=== PATIENT | female | born 1950 | race African-American/Black ===

== ENCOUNTER → 2016-08-21 | Outpatient (CLI) | payer OTHER ==
--- NOTE | 2016-08-21 10:42 | KCIC ---
Exam: Abdomen ultrasound Indication:Reason For Study Reason: WEIGHT LOSS, LUQ PAIN / Spl. Instructions: / History: Technique: Multiple realtime grayscale sonographic images were obtained over the abdomen. Static images were submitted for interpretation. Findings: Visualized portions of the pancreas are unremarkable. The IVC is patent. The aorta is normal in caliber. The liver is normal in size measuring 15 cm. There is a normal hepatic echotexture. There is a cyst in the posterior right lobe that measures 1.8 centimeters. There is also a cyst with some internal septation or calcification also in the right lobe that measures up to 2.7 centimeters size. This is unchanged compared to the previous exam from 06/07/2014. The gallbladder is nondistended. There is no evidence for cholelithiasis. There is no wall thickening, or pericholecystic fluid. The common bile duct is dilated measuring 9 millimeters. The Right kidney is normal in size measuring 10.1 x 4.8 x 3.8 cm. There is no evidence for mass, nephrolithiasis, or hydronephrosis. The Left kidney is normal in size measuring 10.3 x 2.9 x 4.9 cm. There is no evidence for mass, nephrolithiasis, or hydronephrosis. The spleen is normal in size measuring 8.2 cm. No ascites is identified. Impression: - There is dilatation of the common bile duct measuring up to 9 millimeters. No cholelithiasis or evidence for acute cholecystitis. Electronically signed by: Mateo Mosley (Aug 21, 2016 10:41:01)
== END | disposition home or self-care (01) ==
LOC: KCIC US 08:41
PROVIDERS: ATTEND Internal Medicine Gastroenterology
DX: R10.12 Left upper quadrant pain (principal); R63.4 Abnormal weight loss
CPT/HCPCS: 76700

== ENCOUNTER → 2016-09-10 | Outpatient (CLI) | payer OTHER ==
[~2016-09-10] MED LIST: ATOR10TA60 PO; DICL100G7 TP; DICY10CA3 PO; FLUO15CR TP; IOHEXOL 240 MG/ML 50ML VIAL. PO ONE; IOHEXOL 300 MG/ML 100ML VIAL. IV ONE; KETO15CR TP; MELO-156 PO; MOME13HF2 IH; POTA10TA5 PO; TRIA80OI TP; VENTOLIN HFA18 GM INH
--- NOTE | 2016-09-10 13:21 | KCIC ---
PQRS STATEMENT One or more of the following individualized dose reduction techniques were utilized for this study:1.Automated exposure control. 2.Adjustment of the mA and/orkVaccording to patient size. 3.Use of iterative reconstruction technique CT abdomen Indication: Reason For Study Reason: DILATED BILE DUCT SEEN ON US. ABDOMINAL PAIN / Spl. Instructions: 89cc Omni 300 / History: Mid abdominal pain a few months, wt loss Technique: Multiple contiguous axial images were obtained through abdomen after intravenous administration of iodinated contrast and oral barium contrast. Coronal and sagittal reformations were created. Findings: Lung bases are clear. Heart size is normal. The liver is normal in size and demonstrates hepatic cysts within the right lobe, the largest of which measures 2.6 centimeters. No enhancing hepatic lesions are identified. The gallbladder is nondistended. The pancreas, spleen, and adrenal glands are unremarkable. Kidneys are normal in size and appearance. No enhancing mass or hydronephrosis. No ascites or adenopathy. No destructive osseous lesions are identified. Impression: No ascites or inflammatory mass. There are several hepatic cysts, the largest of which measures 2.6 centimeters. Electronically signed by: Mateo Mosley (Sep 10, 2016 13:20:23)
== END | disposition home or self-care (01) ==
LOC: KCIC CT 08:45
PROVIDERS: ATTEND Internal Medicine Gastroenterology
DX: R10.9 Unspecified abdominal pain (principal); K76.89 Other specified diseases of liver
CPT/HCPCS: 74160; Q9966; Q9967; 82565

== ENCOUNTER → 2016-10-15 | Outpatient (CLI) | payer OTHER ==
[~2016-10-15] MED LIST changes: -IOHEXOL 240 MG/ML 50ML VIAL. PO ONE; -IOHEXOL 300 MG/ML 100ML VIAL. IV ONE
--- NOTE | 2016-10-15 16:30 | KCIC ---
PROCEDURE MRI abdomenwithout contrast and MRCP. HISTORY Common bile duct stone. Abnormal ultrasound study. TECHNIQUE T1 and T2 weighted MRI sequences of the abdomen was performed in the axial and coronal planes. In phase and out of phase MRI sequences were performed. Using a single shot heavily T2-weighted fast spin-echo and MIP algorithm, 3-D reconstructed MRCP was generated. COMPARISON Ultrasound study dated August 21, [address] study dated September 10, 2016. FINDINGS MRI ABDOMEN: Cysts of the liver are seen. The spleen is not enlarged. The pancreas is homogeneous in appearance. The gallbladder is normal. No adrenal mass is evident. A small sub centimeter nodule of the upper pole right kidney is seen which is very bright on T2 weighted images most consistent with a cyst. No hydronephrosis is seen. No focal aneurysmal dilatation of the abdominal aorta is seen. No enlarged abdominal lymphadenopathy is seen. No ascites is seen. MRCP: No abnormal dilatation of the intrahepatic or extrahepatic biliary tree is seen. No filling defects are seen within the extrahepatic biliary tree. No stricture is seen. No abnormal dilatation of the pancreatic duct is seen. IMPRESSION 1. Hepatic cysts and tiny right renal cyst. 2. Unremarkable MRCP. Electronically signed by: Олег Flynn MD (October 15, 2016 16:28:29)
== END | disposition home or self-care (01) ==
LOC: KCIC MRI 08:40
PROVIDERS: ATTEND Physician Assistant
DX: K76.89 Other specified diseases of liver (principal); N28.1 Cyst of kidney, acquired
CPT/HCPCS: 74181

== ENCOUNTER → 2016-11-19 | Outpatient (CLI) | payer OTHER ==
[~2016-11-19] MED LIST changes: +DICL100G18 TP; -DICL100G7 TP; -KETO15CR TP; +KETO15CR2 TP; -MELO-156 PO; +MELO7.5T29 PO
--- NOTE | 2016-11-19 15:32 | RAD ---
DATE: 11/19/2016 EXAM: DIGITAL SCREEN BILAT W/CAD HISTORY: Screening study. COMPARISON: 11/12/2015 This study was interpreted with the benefit of Computerized Aided Detection (CAD). FINDINGS: Digital MLO and CC mammograms of both breasts were obtained. Comparison study is dated 11/12/2015. The breast parenchyma is composed of scattered fibroglandular densities which can obscure a lesion on mammography (breast density code B).. Benign-appearing calcifications are seen within both breasts. No spiculated mass is seen. No malignant appearing calcification or area of architectural distortion is noted. IMPRESSION: BI-RADS Category 1, negative. There is no mammographic evidence of malignancy. Routine yearly screening mammography is recommended for follow-up. BI-RADS CATEGORY: 1 NEGATIVE RECOMMENDED FOLLOW-UP: 12M 12 MONTH FOLLOW-UP PQRS compliance statement: Patient information was entered into a reminder system with a target due date 11/19/2017 for the next mammogram. Mammography is a sensitive method for finding small breast cancers, but it does not detect them all and is not a substitute for careful clinical examination. A negative mammogram does not negate a clinically suspicious finding and should not result in delay in biopsying a clinically suspicious abnormality. "Our facility is accredited by the [employer] Mammography Program."
== END | disposition home or self-care (01) ==
LOC: MAMMO 13:20
PROVIDERS: ATTEND Family Medicine
DX: Z12.31 Encounter for screening mammogram for malignant neoplasm of breast (principal)
CPT/HCPCS: G0202; 77067

== ENCOUNTER 2016-12-14 11:48 | Inpatient (IN) | payer OTHER ==
[~2016-12-14] VITALS: Ht 160 cm; Wt 59.9 kg
--- NOTE | 2016-12-14 12:12 | EKG ---
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
[2016-12-14] MEDS ORDERED: IV NORMAL SALINE 1000ML BAG 1,000 ML IV ONE (12:15)
[2016-12-14 12:20] LABS: BASO % 1 % (0-3); EOS % 1 % (0-3); HEMATOCRIT 46.5 % (36.0-47.0); HEMOGLOBIN 15.6 g/dL (12.0-15.5); LYMPH # 2.7 x10^3/uL (1.0-4.8); LYMPH % 41 % (24-48); MEAN CORPUSCULAR HEMOGLOBIN 31 pg (25-35); MEAN CORPUSCULAR HGB CONC 34 g/dL (31-37); MEAN CORPUSCULAR VOLUME 92 fL (79-100); MONO % 11 % (0-9); NEUT % 46 % (31-73); PLATELET COUNT 343 x10^3/uL (140-400); RED BLOOD COUNT 5.04 x10^6/uL (3.50-5.40); RED CELL DISTRIBUTION WIDTH 15.4 % (11.5-14.5); WHITE BLOOD COUNT 6.5 x10^3/uL (4.0-11.0)
[2016-12-14 12:30] LABS: PROTHROMBIN TIME PATIENT 12.6 SEC (11.7-14.0)
[2016-12-14 12:35] LABS: GFR 66.7; POTASSIUM 3.1 mmol/L (3.5-5.1)
--- NOTE | 2016-12-14 12:40 | PHYS DOC ---
Past Medical History Past Medical History: Hypertension Alcohol Use: None Drug Use: None Adult General Chief Complaint Chief Complaint: ALTERED MENTAL STATUS HPI HPI Patient is a 66 year old female presenting to the emergency department for evaluation of altered mental status and increased confusion. Patient was at sikhism and one half her friends was next to her and appeared the patient was emotional and then later on friend was asking patient's questions and she could not recall her 's phone number and seemed more disoriented. Per and daughter she is highly functioning usually alert and oriented the patient is now alert and oriented 2 cannot tell me the month or the year and does not know her doctor's name or any of her medications. She says that she has a history of hypertension and high cholesterol but no strokes or heart attacks in the past. They say that she had an episode like this in the past where she had an emotional event and then had lapses in memory that resolved on its own after an inpatient admission. Review of Systems Review of Systems Constitutional: Denies fever or chills [] Eyes: Denies change in visual acuity, redness, or eye pain [] HENT: Denies nasal congestion or sore throat [] Respiratory: Denies cough or shortness of breath [] Cardiovascular: No additional information not addressed in HPI [] GI: Denies abdominal pain, nausea, vomiting, bloody stools or diarrhea [] : Denies dysuria or hematuria [] Musculoskeletal: Denies back pain or joint pain [] Integument: Denies rash or skin lesions [] Neurologic: Denies headache, focal weakness or sensory changes [] Current Medications Current Medications Current Medications Medications (Trade) Dose Ordered Sig/Claudy Start Time Stop Time Status Last Admin Dose Admin Sodium Chloride 1,000 ml @ 1,000 mls/hr 1X ONCE 12/14/16 12:15 12/14/16 13:14 DC 12/14/16 12:15 1,000 MLS/HR Allergies Allergies Allergies Coded Allergies Type Severity Reaction Last Updated Verified morphine Allergy Unknown severe vomiting 05/30/14 Yes Physical Exam Physical Exam Constitutional: Well developed, well nourished, no acute distress, non-toxic appearance. [] HENT: Normocephalic, atraumatic, bilateral external ears normal, oropharynx moist, no oral exudates, nose normal. [] Eyes: PERRLA, EOMI, conjunctiva normal, no discharge. [] Neck: Normal range of motion, no tenderness, supple, no stridor. [] Cardiovascular:Heart rate regular rhythm, no murmur [] Lungs & Thorax: Bilateral breath sounds clear to auscultation [] Abdomen: Bowel sounds normal, soft, no tenderness, no masses, no pulsatile masses. [] Skin: Warm, dry, no erythema, no rash. [] Back: No tenderness, no CVA tenderness. [] Extremities: No tenderness, no cyanosis, no clubbing, ROM intact, no edema. [] Neurologic: Alert and oriented X 2, normal motor function, normal sensory function, no focal deficits noted. [] Current Patient Data Vital Signs Vital Signs Date Time Temp Pulse Resp B/P (MAP) Pulse Ox O2 Delivery O2 Flow Rate FiO2 12/14/16 11:48 98.1 92 16 165/75 (105) 99 Room Air 98.1 Lab Values Laboratory Tests Test 12/14/16 11:55 12/14/16 12:35 White Blood Count 6.5 x10^3/uL (4.0-11.0) Red Blood Count 5.04 x10^6/uL (3.50-5.40) Hemoglobin 15.6 g/dL (12.0-15.5) H Hematocrit 46.5 % (36.0-47.0) Mean Corpuscular Volume 92 fL (79-100) Mean Corpuscular Hemoglobin 31 pg (25-35) Mean Corpuscular Hemoglobin Concent 34 g/dL (31-37) Red Cell Distribution Width 15.4 % (11.5-14.5) H Platelet Count 343 x10^3/uL (140-400) Neutrophils (%) (Auto) 46 % (31-73) Lymphocytes (%) (Auto) 41 % (24-48) Monocytes (%) (Auto) 11 % (0-9) H Eosinophils (%) (Auto) 1 % (0-3) Basophils (%) (Auto) 1 % (0-3) Neutrophils # (Auto) 3.0 x10^3uL (1.8-7.7) Lymphocytes # (Auto) 2.7 x10^3/uL (1.0-4.8) Monocytes # (Auto) 0.7 x10^3/uL (0.0-1.1) Eosinophils # (Auto) 0.1 x10^3/uL (0.0-0.7) Basophils # (Auto) 0.0 x10^3/uL (0.0-0.2) Sodium Level 138 mmol/L (136-145) Potassium Level 3.1 mmol/L (3.5-5.1) L Chloride Level 100 mmol/L (98-107) Carbon Dioxide Level 26 mmol/L (21-32) Anion Gap 12 (6-14) Blood Urea Nitrogen 15 mg/dL (7-20) Creatinine 1.0 mg/dL (0.6-1.0) Estimated GFR (Cockcroft-Gault) 66.7 BUN/Creatinine Ratio 15 (6-20) Glucose Level 155 mg/dL (70-99) H Calcium Level 11.0 mg/dL (8.5-10.1) H Magnesium Level 2.1 mg/dL (1.8-2.4) Total Bilirubin 0.3 mg/dL (0.2-1.0) Aspartate Amino Transferase (AST) 32 U/L (15-37) Alanine Aminotransferase (ALT) 46 U/L (14-59) Alkaline Phosphatase 175 U/L (46-116) H Troponin I Quantitative 0.017 ng/mL (0.000-0.055) IA-Ziq-V-Type Natriuretic Peptide 32 pg/mL (0-124) Total Protein 8.9 g/dL (6.4-8.2) H Albumin 4.5 g/dL (3.4-5.0) Albumin/Globulin Ratio 1.0 (1.0-1.7) Thyroid Stimulating Hormone (TSH) 1.034 uIU/mL (0.358-3.74) Salicylates Level < 2.8 mg/dL (2.8-20.0) L Salicylate Last Dose Date Salicylate Last Dose Time Acetaminophen Level < 2 mcg/ml (10-30) L Acetaminophen Last Dose Date Acetaminophen Last Dose Time Ethyl Alcohol Level < 10 mg/dL (0-10) Urine Collection Type Unknown Urine Color Yellow Urine Clarity Clear Urine pH 7.5 Urine Specific [place] <=1.005 Urine Protein Negative mg/dL (NEG-TRACE) Urine Glucose (UA) Negative mg/dL (NEG) Urine Ketones (Stick) Negative mg/dL (NEG) Urine Blood Negative (NEG) Urine Nitrite Negative (NEG) Urine Bilirubin Negative (NEG) Urine Urobilinogen Dipstick 0.2 mg/dL (0.2 mg/dL) Urine Leukocyte Esterase Negative (NEG) Urine RBC 0 /HPF (0-2) Urine WBC 0 /HPF (0-4) Urine Squamous Epithelial Cells Few /LPF Urine Bacteria 0 /HPF (0-FEW) Urine Opiates Screen Neg (NEG) Urine Methadone Screen Neg (NEG) Urine Barbiturates Neg (NEG) Urine Phencyclidine Screen Neg (NEG) Urine Amphetamine/Methamphetamine Neg (NEG) Urine Benzodiazepines Screen Neg (NEG) Urine Cocaine Screen Neg (NEG) Urine Cannabinoids Screen Neg (NEG) Urine Ethyl Alcohol Neg (NEG) Laboratory Tests 12/14/16 11:55 Laboratory Tests 12/14/16 11:55 EKG EKG Sinus rhythm at 90 beats per minutes with normal axis no obvious ST elevation or depression and normal T waves. Radiology/Procedures Radiology/Procedures CT head without contrast History: Confusion. Comparison: None. Procedure: Axial images are obtained of the head from the skull base through the vertex without IV contrast. Findings: Mild bilateral periventricular white matter hypodensities likely chronic small vessel ischemic disease. The ventricles and sulci are normal for the patient's age. No mass-effect, intracranial mass, midline shift, hemorrhage or obvious acute infarction is identified. Basilar cisterns are patent. Bone windows demonstrate no significant calvarial abnormality. The visualized paranasal sinuses appear clear. Impression: 1. No acute intracranial process. PQRS Compliance Statement: One or more of the following individualized dose reduction techniques were utilized for this examination: 1. Automated exposure control 2. Adjustment of the mA and/or kV according to patient size 3. Use of iterative reconstruction technique DICTATED and SIGNED BY: DALTON GONSALEZ MD DATE: 12/14/16 6022 Course & Med Decision Making Course & Med Decision Making Patient with likely conversion disorder. I spoke to the neurologist on-call Dr. Vera. Based off history and physical exam will not do TPA at this time as her NIH stroke scale is 0. Patient will be admitted for the hospital due to her confusion. Patient admitted in stable condition. Dragon Disclaimer Dragon Disclaimer This electronic medical record was generated, in whole or in part, using a voice recognition dictation system. Departure Departure Impression: Primary Impression: Encephalopathy acute Additional Impression: Hypokalemia Disposition: ADMITTED INPATIENT Admitting Physician: Sunitha Rahman Condition: STABLE Referrals: CT JIMENEZ MD (PCP) Problem Qualifiers NINA CHADWICK DO Dec 14, 2016 12:40
[2016-12-14 12:42] LABS: ALBUMIN 4.5 g/dL (3.4-5.0); MAGNESIUM 2.1 mg/dL (1.8-2.4); TOTAL BILIRUBIN 0.3 mg/dL (0.2-1.0); TOTAL PROTEIN 8.9 g/dL (6.4-8.2)
[2016-12-14 12:47] LABS: ETHANOL < 10 mg/dL (0-10)
[2016-12-14 13:10] LABS: BARBITURATES NEG (NEG); BENZODIAZEPINES NEG (NEG); CANNABINOIDS NEG (NEG); COCAINE NEG (NEG); METHADONE NEG (NEG); OPIATES NEG (NEG); PHENCYCLIDINE NEG (NEG)
[2016-12-14 13:12] LABS: BACTERIA,URINE 0 /HPF (0-FEW); BILIRUBIN,URINE NEGATIVE (NEG); GLUCOSE,URINE NEGATIVE (NEG); NITRITE,URINE NEGATIVE (NEG); PH,URINE 7.5; PROTEIN,URINE NEGATIVE (NEG-TRACE); RBC,URINE 0 /HPF (0-2); SQUAMOUS EPITHELIAL CELL,UR FEW /LPF; UROBILINOGEN,URINE 0.2 mg/dL (0.2 mg/dL); WBC,URINE 0 /HPF (0-4)
[2016-12-14] MEDS ORDERED: POTASSIUM CHLORIDE 20 MEQ TABLET.ER. PO ONE ×2 (13:15→18:00)
[2016-12-14] MEDS ORDERED: ONDANSETRON PF 4 MG/2 ML VIAL. IV PRN ×2 (13:15→15:00)
[2016-12-14 14:40] VITALS: BP 123/61
[2016-12-14 14:44] VITALS: BP 123/61
[2016-12-14] MEDS ORDERED: ALBUTEROL SULFATE 2.5 MG/3 ML NEBU. NEB PRN (15:00)
[2016-12-14] MEDS ORDERED: hydrALAZINE 20 MG/ML VIAL. IVP PRN (15:00)
[2016-12-14] MEDS ORDERED: ACETAMINOPHEN 325 MG TABLET. PO PRN (15:00)
[2016-12-14] MEDS ORDERED: ATOR20TA58 PO (15:57)
[2016-12-14] MEDS ORDERED: BIOT25006 PO (15:57)
[2016-12-14] MEDS ORDERED: FOLI1TAB35 PO (15:57)
[2016-12-14] MEDS ORDERED: POTA20TA4 PO (16:00)
[2016-12-14] MEDS ORDERED: OMEP40CA5 PO (16:00)
[2016-12-14] MEDS ORDERED: TRIA1CAP3 PO (16:00)
[2016-12-14] MEDS ORDERED: CALC-77 PO (16:00)
[2016-12-14] MEDS ORDERED: AMLO5TAB2 PO (16:01)
[2016-12-14] MEDS ORDERED: IBUPROFEN 400 MG TABLET. PO PRN (17:45)
--- NOTE | 2016-12-14 17:51 | PDOC1 ---
History and Physical History of Present Illness History of Present Illness Date of exam 12/14/2016 5:30 PM Chief complaint: Brief loss memory History of present illness: A 66-year-old -[place] female patient with prior history for hypertension brought to the hospital for a sudden loss of memory for a few hours. Today patient was with her family members in mormonism however she could not able to recall her or family member's names and phone numbers for a brief period of time. She was brought to the hospital and her symptoms lasted for nearly a few hours, at the time of examination patient is completely alert and oriented 3, she was able to recall that she was singing in the choir, but family says similar things she could not able to tell as few hours ago. Her mom was nearly 2 years ago, she had a similar episode of loss of consciousness, at the time she was evaluated in [facility] however at the time her CT of the head did not show any acute findings. She denies any headache nausea vomiting or syncope or fever or chills. Her left past medical history: Hypertension Surgical history :none Family history: father had congestive heart failure, mother had colon cancer, some of her close family members have a cerebral aneurysms. Personal history never smoker no alcohol no drug abuse, Current Problem List Problem List Problems Medical Problems: (1) Encephalopathy acute Status: Acute (2) Hypokalemia Status: Acute Current Medications Current Medications Current Medications Medications (Trade) Dose Ordered Sig/Claudy Start Time Stop Time Status Last Admin Dose Admin Acetaminophen (Tylenol) 325 mg PRN Q6HRS PRN 12/14/16 15:00 Albuterol Sulfate (Ventolin Neb Soln) 2.5 mg PRN Q4HRS PRN 12/14/16 15:00 Hydralazine HCl (Apresoline) 10 mg PRN Q4HRS PRN 12/14/16 15:00 Ondansetron HCl (Zofran) 4 mg PRN Q8HRS PRN 12/14/16 15:00 Potassium Chloride (Klor-Con) 40 meq 1X ONCE 12/14/16 13:15 12/14/16 13:16 DC Sodium Chloride 1,000 ml @ 1,000 mls/hr 1X ONCE 12/14/16 12:15 12/14/16 13:14 DC 12/14/16 12:15 1,000 MLS/HR Allergies Allergies Allergies Coded Allergies Type Severity Reaction Last Updated Verified doxycycline Allergy Intermediate 12/14/16 Yes morphine Allergy Unknown severe vomiting 05/30/14 Yes ROS Review of System CONSTITUTIONAL: No fever or chills EYES: No recent changes SKIN: No rash or itching CARDIOVASCULAR: No chest pain, syncope, palpitations, or edema RESPIRATORY: No SOB or cough GASTROINTESTINAL: No nausea, vomiting or abdominal pain NEUROLOGICAL: No headaches or weakness ENDOCRINE: No cold or heat intolerance GENITOURINARY: No urgency or frequency of urination MUSCULOSKELETAL: No back pain or joint pain LYMPHATICS: No enlarged lymph nodes PSYCHIATRIC: No anxiety or depression Physical Exam Physical Exam GEN.: No apparent distress. Alert and oriented 3, appropriate and cooperative. HEENT: Head is normocephalic, atraumatic NECK: Supple. LUNGS: Clear to auscultation. HEART: RRR, S1, S2 present. Peripheral pulses intact ABDOMEN: Soft, nontender. Positive bowel sounds. EXTREMITIES: Without any cyanosis. NEUROLOGIC: Normal speech, normal tone, strength equal in upper extremities, PSYCHIATRIC: Normal affect, normal mood. SKIN: No ulcerations Vitals Vitals Vital Signs Date Time Temp Pulse Resp B/P (MAP) Pulse Ox O2 Delivery O2 Flow Rate FiO2 12/14/16 14:44 98.3 86 15 123/61 (81) 100 Room Air 98.3 Labs Labs Laboratory Tests Test 12/14/16 11:55 12/14/16 12:35 White Blood Count 6.5 x10^3/uL (4.0-11.0) Red Blood Count 5.04 x10^6/uL (3.50-5.40) Hemoglobin 15.6 g/dL (12.0-15.5) Hematocrit 46.5 % (36.0-47.0) Mean Corpuscular Volume 92 fL (79-100) Mean Corpuscular Hemoglobin 31 pg (25-35) Mean Corpuscular Hemoglobin Concent 34 g/dL (31-37) Red Cell Distribution Width 15.4 % (11.5-14.5) Platelet Count 343 x10^3/uL (140-400) Neutrophils (%) (Auto) 46 % (31-73) Lymphocytes (%) (Auto) 41 % (24-48) Monocytes (%) (Auto) 11 % (0-9) Eosinophils (%) (Auto) 1 % (0-3) Basophils (%) (Auto) 1 % (0-3) Neutrophils # (Auto) 3.0 x10^3uL (1.8-7.7) Lymphocytes # (Auto) 2.7 x10^3/uL (1.0-4.8) Monocytes # (Auto) 0.7 x10^3/uL (0.0-1.1) Eosinophils # (Auto) 0.1 x10^3/uL (0.0-0.7) Basophils # (Auto) 0.0 x10^3/uL (0.0-0.2) Prothrombin Time 12.6 SEC (11.7-14.0) Prothromb Time International Ratio 1.0 (0.8-1.1) Activated Partial Thromboplast Time 27 SEC (24-38) Sodium Level 138 mmol/L (136-145) Potassium Level 3.1 mmol/L (3.5-5.1) Chloride Level 100 mmol/L (98-107) Carbon Dioxide Level 26 mmol/L (21-32) Anion Gap 12 (6-14) Blood Urea Nitrogen 15 mg/dL (7-20) Creatinine 1.0 mg/dL (0.6-1.0) Estimated GFR (Cockcroft-Gault) 66.7 BUN/Creatinine Ratio 15 (6-20) Glucose Level 155 mg/dL (70-99) Calcium Level 11.0 mg/dL (8.5-10.1) Magnesium Level 2.1 mg/dL (1.8-2.4) Total Bilirubin 0.3 mg/dL (0.2-1.0) Aspartate Amino Transf (AST/SGOT) 32 U/L (15-37) Alanine Aminotransferase (ALT/SGPT) 46 U/L (14-59) Alkaline Phosphatase 175 U/L (46-116) Troponin I Quantitative 0.017 ng/mL (0.000-0.055) IU-Ikn-I-Type Natriuretic Peptide 32 pg/mL (0-124) Total Protein 8.9 g/dL (6.4-8.2) Albumin 4.5 g/dL (3.4-5.0) Albumin/Globulin Ratio 1.0 (1.0-1.7) Thyroid Stimulating Hormone (TSH) 1.034 uIU/mL (0.358-3.74) Salicylates Level < 2.8 mg/dL (2.8-20.0) Salicylate Last Dose Date Salicylate Last Dose Time Acetaminophen Level < 2 mcg/ml (10-30) Acetaminophen Last Dose Date Acetaminophen Last Dose Time Ethyl Alcohol Level < 10 mg/dL (0-10) Urine Collection Type Unknown Urine Color Yellow Urine Clarity Clear Urine pH 7.5 Urine Specific [place] <=1.005 Urine Protein Negative mg/dL (NEG-TRACE) Urine Glucose (UA) Negative mg/dL (NEG) Urine Ketones (Stick) Negative mg/dL (NEG) Urine Blood Negative (NEG) Urine Nitrite Negative (NEG) Urine Bilirubin Negative (NEG) Urine Urobilinogen Dipstick 0.2 mg/dL (0.2 mg/dL) Urine Leukocyte Esterase Negative (NEG) Urine RBC 0 /HPF (0-2) Urine WBC 0 /HPF (0-4) Urine Squamous Epithelial Cells Few /LPF Urine Bacteria 0 /HPF (0-FEW) Urine Opiates Screen Neg (NEG) Urine Methadone Screen Neg (NEG) Urine Barbiturates Neg (NEG) Urine Phencyclidine Screen Neg (NEG) Urine Amphetamine/Methamphetamine Neg (NEG) Urine Benzodiazepines Screen Neg (NEG) Urine Cocaine Screen Neg (NEG) Urine Cannabinoids Screen Neg (NEG) Urine Ethyl Alcohol Neg (NEG) Laboratory Tests Test 12/14/16 11:55 12/14/16 12:35 White Blood Count 6.5 x10^3/uL (4.0-11.0) Red Blood Count 5.04 x10^6/uL (3.50-5.40) Hemoglobin 15.6 g/dL (12.0-15.5) Hematocrit 46.5 % (36.0-47.0) Mean Corpuscular Volume 92 fL (79-100) Mean Corpuscular Hemoglobin 31 pg (25-35) Mean Corpuscular Hemoglobin Concent 34 g/dL (31-37) Red Cell Distribution Width 15.4 % (11.5-14.5) Platelet Count 343 x10^3/uL (140-400) Neutrophils (%) (Auto) 46 % (31-73) Lymphocytes (%) (Auto) 41 % (24-48) Monocytes (%) (Auto) 11 % (0-9) Eosinophils (%) (Auto) 1 % (0-3) Basophils (%) (Auto) 1 % (0-3) Neutrophils # (Auto) 3.0 x10^3uL (1.8-7.7) Lymphocytes # (Auto) 2.7 x10^3/uL (1.0-4.8) Monocytes # (Auto) 0.7 x10^3/uL (0.0-1.1) Eosinophils # (Auto) 0.1 x10^3/uL (0.0-0.7) Basophils # (Auto) 0.0 x10^3/uL (0.0-0.2) Prothrombin Time 12.6 SEC (11.7-14.0) Prothromb Time International Ratio 1.0 (0.8-1.1) Activated Partial Thromboplast Time 27 SEC (24-38) Sodium Level 138 mmol/L (136-145) Potassium Level 3.1 mmol/L (3.5-5.1) Chloride Level 100 mmol/L (98-107) Carbon Dioxide Level 26 mmol/L (21-32) Anion Gap 12 (6-14) Blood Urea Nitrogen 15 mg/dL (7-20) Creatinine 1.0 mg/dL (0.6-1.0) Estimated GFR (Cockcroft-Gault) 66.7 BUN/Creatinine Ratio 15 (6-20) Glucose Level 155 mg/dL (70-99) Calcium Level 11.0 mg/dL (8.5-10.1) Magnesium Level 2.1 mg/dL (1.8-2.4) Total Bilirubin 0.3 mg/dL (0.2-1.0) Aspartate Amino Transf (AST/SGOT) 32 U/L (15-37) Alanine Aminotransferase (ALT/SGPT) 46 U/L (14-59) Alkaline Phosphatase 175 U/L (46-116) Troponin I Quantitative 0.017 ng/mL (0.000-0.055) VJ-Ioz-Y-Type Natriuretic Peptide 32 pg/mL (0-124) Total Protein 8.9 g/dL (6.4-8.2) Albumin 4.5 g/dL (3.4-5.0) Albumin/Globulin Ratio 1.0 (1.0-1.7) Thyroid Stimulating Hormone (TSH) 1.034 uIU/mL (0.358-3.74) Salicylates Level < 2.8 mg/dL (2.8-20.0) Salicylate Last Dose Date Salicylate Last Dose Time Acetaminophen Level < 2 mcg/ml (10-30) Acetaminophen Last Dose Date Acetaminophen Last Dose Time Ethyl Alcohol Level < 10 mg/dL (0-10) Urine Collection Type Unknown Urine Color Yellow Urine Clarity Clear Urine pH 7.5 Urine Specific [place] <=1.005 Urine Protein Negative mg/dL (NEG-TRACE) Urine Glucose (UA) Negative mg/dL (NEG) Urine Ketones (Stick) Negative mg/dL (NEG) Urine Blood Negative (NEG) Urine Nitrite Negative (NEG) Urine Bilirubin Negative (NEG) Urine Urobilinogen Dipstick 0.2 mg/dL (0.2 mg/dL) Urine Leukocyte Esterase Negative (NEG) Urine RBC 0 /HPF (0-2) Urine WBC 0 /HPF (0-4) Urine Squamous Epithelial Cells Few /LPF Urine Bacteria 0 /HPF (0-FEW) Urine Opiates Screen Neg (NEG) Urine Methadone Screen Neg (NEG) Urine Barbiturates Neg (NEG) Urine Phencyclidine Screen Neg (NEG) Urine Amphetamine/Methamphetamine Neg (NEG) Urine Benzodiazepines Screen Neg (NEG) Urine Cocaine Screen Neg (NEG) Urine Cannabinoids Screen Neg (NEG) Urine Ethyl Alcohol Neg (NEG) VTE Prophylaxis Ordered VTE Prophylaxis Devices: No VTE Pharmacological Prophylaxi: No Assessment/Plan Assessment/Plan Assessment and plan Brief loss of memory: Unclear etiology, at the time of my examination patient appears very appropriate and able to recall some of her the events happened this morning family members at bedside. Initial imaging studies such as CT of the head is negative, I will order a CTA of the brain as patient had a history of aneurysms however she denies any symptoms such as headache nausea vomiting. Replace potassium Hypertension: Stable, continue current regimen, as needed hydralazine if systolic blood pressure more than 165 mmHg. Labs/images/old records reviewed case discussed with ER physician, SERENITY ANDERSON MD Dec 14, 2016 17:51
[2016-12-14] MEDS ORDERED: CONTRAST GIVEN MC PRN (18:00)
[2016-12-14] MEDS ORDERED: IOHEXOL 350 MG/ML 100 ML VIAL. IV ONE (18:30)
[2016-12-14 19:00] VITALS: BP 109/56
[2016-12-14] MEDS ORDERED: DICYCLOMINE HCL 10 MG CAPSULE PO SCH (21:00)
[2016-12-14] MEDS ORDERED: KETOCONAZOLE 2% TOPICAL CREAM 15GM TUBE. TP SCH (21:00)
[2016-12-14] MEDS ORDERED: FLUOCINONIDE 0.05% TOPICAL CREAM 15 GM TUBE. TP SCH (21:00)
[2016-12-14] MEDS ORDERED: DICLOFENAC SODIUM 1% TOPICAL GEL 100GM TUBE. TP SCH (21:00)
--- NOTE | 2016-12-14 21:33 | PDOC2 ---
NEUROLOGY CONSULT Date of Admission Date of Admission DATE: 12/14/16 TIME: 21:25 Reason for consultation: Transient episode of confusion History of present illness: Keya Mathew is a pleasant 66-year-old woman who had an episode of confusion today lasting for several hours. She remembers getting up and getting ready and going to gnosticist. She sings in the choir and remember singing the first few songs. This is the last of her memory until she was in the emergency room. Apparently she was acting confused to those around her. She asked the same questions repeatedly. She did not seem to retain any information. She was taken by ambulance to emergency room but does not remember. She has memories in the emergency room and has been progressively improving. She had a similar episode 2 years ago when her mother . She does not have any memory of the . Her was at bedside and was witnessed to the first spell. She asked the same questions repeatedly. The symptoms resolved after a number of hours. It seem it took her a day to really get back to her usual self. He did not witness today spell. She has a slight headache which is minor. She does not have any loss of vision or hearing. This did not affect her strength, balance or sensation. She underwent a CT scan of her head in the emergency room without contrast which did not reveal an acute process. She basically feels back to her usual self at the time of my evaluation. Past medical history: 1. Hypertension 2. Prediabetes 3. Treated hyperlipidemia Family history: Her mother with colon cancer. She had diabetes and hyperlipidemia. Her brother had a stroke. Her father with heart disease. Her sister with a ruptured brain aneurysm. Social history: She is and has 2 children. She has 4 grandchildren that live local. She is a lifelong nonsmoker. She does not drink alcohol or use recreational drugs. She is very active. She exercises once per week. If she exercises more often she has a tendency to lose weight and does not want to lose any more weight. Current Medications Current Medications Current Medications Sodium Chloride 1,000 ml @ 1,000 mls/hr 1X ONCE IV Last administered on t 12:15; Start 12/14/16 at 12:15; Stop 12/14/16 at 13:14; Status DC Potassium Chloride (Klor-Con) 40 meq 1X ONCE PO Last administered on 12/14/16t 15:45; Start 12/14/16 at 13:15; Stop 12/14/16 at 13:16; Status DC Ondansetron HCl (Zofran) 4 mg PRN Q8HRS PRN IV NAUSEA/VOMITING; Start 12/14/16 at 13:15; Stop 12/14/16 at 17:41; Status DC Acetaminophen (Tylenol) 325 mg PRN Q6HRS PRN PO MILD PAIN / TEMP; Start at 15:00 Hydralazine HCl (Apresoline) 10 mg PRN Q4HRS PRN IVP ELEVATED BP, SEE COMMENTS ; Start 12/14/16 at 15:00 Ondansetron HCl (Zofran) 4 mg PRN Q8HRS PRN IV NAUSEA/VOMITING; Start 12/14/16 at 15:00 Albuterol Sulfate (Ventolin Neb Soln) 2.5 mg PRN Q4HRS PRN NEB SHORTNESS OF BREATH; Start 12/14/16 at 15:00 Amlodipine Besylate (Norvasc) 5 mg DAILY PO ; Start 12/15/16 at 09:00 Atorvastatin Calcium (Lipitor) 20 mg DAILY PO ; Start 12/15/16 at 09:00 Diclofenac Sodium (Voltaren) 1 tito QID TP ; Start 12/14/16 at 21:00; Stop at 21:00; Status DC Dicyclomine HCl (Bentyl) 10 mg TID PO ; Start 12/14/16 at 21:00; Stop 12/14/16 at 21:00; Status DC Fluocinonide (Lidex) 1 tito BID TP ; Start 12/14/16 at 21:00; Stop 12/14/16 at 21: 00; Status DC Ketoconazole (Nizoral 2% Topical) 1 tito BID TP ; Start 12/14/16 at 21:00; Stop at 21:00; Status DC Pantoprazole Sodium (Protonix) 40 mg DAILYAC PO ; Start 12/15/16 at 07:30 Triamterene/HCTZ (Maxzide 37.5/ 25mg) 1 tab DAILY PO ; Start 12/15/16 at 09:00 Ibuprofen (Motrin) 400 mg PRN Q6HRS PRN PO INFLAMMATION; Start 12/14/16 at 17:45 ; Stop 12/15/16 at 17:44 Potassium Chloride (Klor-Con) 20 meq 1X ONCE PO Last administered on 12/14/16t 18:25; Start 12/14/16 at 18:00; Stop 12/14/16 at 18:01; Status DC Iohexol (Omnipaque 350 Mg/ml) 75 ml 1X ONCE IV ; Start 12/14/16 at 18:30; Stop 12/14/16 at 18:31; Status DC Info (Do NOT chart on this entry -- for MONITORING) 1 each PRN DAILY PRN MC SEE COMMENTS; Start 12/14/16 at 18:00; Stop 12/16/16 at 17:59 Active Scripts Active Reported Amlodipine Besylate 5 Mg Tablet 5 Mg PO DAILY Calcium + D3 Er Tablet (Calcium Carb & Cit/Vitamin D3) 1 Each Tablet.er 1 Each PO Klor-Con M20 (Potassium Chloride) 20 Meq Tab.er.prt 1 Tab PO BID Triamterene-Hctz 37.5-25 Mg Cp (Triamterene/Hydrochlorothiazid) 1 Each Capsule 1 Cap PO DAILY Omeprazole 40 Mg Capsule.dr 1 Cap PO DAILY Atorvastatin Calcium 20 Mg Tablet 1 Tab PO DAILY One Daily For Women Tablet (Folic Acid/Mv,Fe,Other Min) 1 Each Tablet 1 Each PO Biotin 2,500 Mcg Capsule 5,000 Mcg PO Ketoconazole 15 Gm Cream..g. 1 Tito TP BID Fluocinonide 15 Gm Cream..g. 1 Tito TP BID Dicyclomine Hcl 10 Mg Capsule 1 Cap PO TID Voltaren (Diclofenac Sodium) 100 Gm Gel..gram. 1 Gm TP QID No Known Medications Prior To Admisstion (Info) Each 1 Each MC Allergies Allergies: Coded Allergies: doxycycline (Verified Allergy, Intermediate, 12/14/16) cough morphine (Verified Allergy, Unknown, severe vomiting, 05/30/14) ROS Review of System She complains of a minor headache. She's had no change in vision or hearing. She has not had any nose or sinus difficulty. She has had no trouble with speech. She had trouble with memory and confusion earlier today. She's been able to swallow without choking. She is not had shortness of breath, chest or abdominal pain. She does not complain of bone pain. She does have some joint pain in her hand, shoulder and neck. She had a fever earlier today on one occasion but it has not been recurrent. She has not had any rash or other illness. She denies any gastrointestinal or genitourinary complaints. She does not complain of easy bruising, excessive bleeding or swelling. She denies any psychiatric complaints. She does not have any focal numbness or weakness. Physical Exam Physical Examination She was alert, awake and cooperative. The speech was fluent and clear. She had a good fund of recent and remote knowledge. Attention and concentration was intact. She was well-groomed and well-nourished. She was fully oriented. Examination of the cranial nerves revealed visual cervantes were full to confrontation. Extraocular movements were intact. The eyes were conjugate. Pursuit movements were smooth and saccadic movements were without dysmetria. The pupils were [default value] millimeters and reacted to light. There was no afferent pupillary defect. Funduscopic examination did not reveal papilledema, exudate or hemorrhage. Facial sensation was intact. The muscles of mastication and facial expression were powerful symmetrically. Hearing was intact to finger rub. The palate arch symmetrically and the tongue was midline with full range of motion. Sternocleidomastoid and trapezius were powerful bilaterally. Muscle bulk and tone was normal. There was no arm drift or abnormal movement. The power was full and symmetric in the upper and lower extremities. Reflexes were 2 /4 and symmetric in the upper and lower extremities. The toes were downgoing bilaterally. Coordination testing with finger to nose, heel to quiñones, fine motor and rapid alternating movements was well performed. The sensory examination was intact to pain, light touch, proprioception, graphesthesia, cold thermal and vibration. There was no extinction to double simultaneous stimulation. The gait was of a normal base and unsteady walk. She was able to heel, toe, and tandem walk. The Romberg stance was negative. Auscultation of the carotid arteries did not reveal a bruit. Heart rhythm was regular without a murmur. Peripheral pulses are 2/4 at the wrists and feet. There was no edema or cyanosis of the extremities. Vitals VITALS Vital Signs Date Time Temp Pulse Resp B/P (MAP) Pulse Ox O2 Delivery O2 Flow Rate FiO2 12/14/16 19:00 101.3 71 16 109/56 (73) 100 Room Air 101.3 Labs Labs Laboratory Tests Test 12/14/16 11:55 12/14/16 12:35 White Blood Count 6.5 x10^3/uL (4.0-11.0) Red Blood Count 5.04 x10^6/uL (3.50-5.40) Hemoglobin 15.6 g/dL (12.0-15.5) Hematocrit 46.5 % (36.0-47.0) Mean Corpuscular Volume 92 fL (79-100) Mean Corpuscular Hemoglobin 31 pg (25-35) Mean Corpuscular Hemoglobin Concent 34 g/dL (31-37) Red Cell Distribution Width 15.4 % (11.5-14.5) Platelet Count 343 x10^3/uL (140-400) Neutrophils (%) (Auto) 46 % (31-73) Lymphocytes (%) (Auto) 41 % (24-48) Monocytes (%) (Auto) 11 % (0-9) Eosinophils (%) (Auto) 1 % (0-3) Basophils (%) (Auto) 1 % (0-3) Neutrophils # (Auto) 3.0 x10^3uL (1.8-7.7) Lymphocytes # (Auto) 2.7 x10^3/uL (1.0-4.8) Monocytes # (Auto) 0.7 x10^3/uL (0.0-1.1) Eosinophils # (Auto) 0.1 x10^3/uL (0.0-0.7) Basophils # (Auto) 0.0 x10^3/uL (0.0-0.2) Prothrombin Time 12.6 SEC (11.7-14.0) Prothromb Time International Ratio 1.0 (0.8-1.1) Activated Partial Thromboplast Time 27 SEC (24-38) Sodium Level 138 mmol/L (136-145) Potassium Level 3.1 mmol/L (3.5-5.1) Chloride Level 100 mmol/L (98-107) Carbon Dioxide Level 26 mmol/L (21-32) Anion Gap 12 (6-14) Blood Urea Nitrogen 15 mg/dL (7-20) Creatinine 1.0 mg/dL (0.6-1.0) Estimated GFR (Cockcroft-Gault) 66.7 BUN/Creatinine Ratio 15 (6-20) Glucose Level 155 mg/dL (70-99) Calcium Level 11.0 mg/dL (8.5-10.1) Magnesium Level 2.1 mg/dL (1.8-2.4) Total Bilirubin 0.3 mg/dL (0.2-1.0) Aspartate Amino Transf (AST/SGOT) 32 U/L (15-37) Alanine Aminotransferase (ALT/SGPT) 46 U/L (14-59) Alkaline Phosphatase 175 U/L (46-116) Troponin I Quantitative 0.017 ng/mL (0.000-0.055) XB-Fiw-L-Type Natriuretic Peptide 32 pg/mL (0-124) Total Protein 8.9 g/dL (6.4-8.2) Albumin 4.5 g/dL (3.4-5.0) Albumin/Globulin Ratio 1.0 (1.0-1.7) Thyroid Stimulating Hormone (TSH) 1.034 uIU/mL (0.358-3.74) Salicylates Level < 2.8 mg/dL (2.8-20.0) Salicylate Last Dose Date Salicylate Last Dose Time Acetaminophen Level < 2 mcg/ml (10-30) Acetaminophen Last Dose Date Acetaminophen Last Dose Time Ethyl Alcohol Level < 10 mg/dL (0-10) Urine Collection Type Unknown Urine Color Yellow Urine Clarity Clear Urine pH 7.5 Urine Specific Broussard <=1.005 Urine Protein Negative mg/dL (NEG-TRACE) Urine Glucose (UA) Negative mg/dL (NEG) Urine Ketones (Stick) Negative mg/dL (NEG) Urine Blood Negative (NEG) Urine Nitrite Negative (NEG) Urine Bilirubin Negative (NEG) Urine Urobilinogen Dipstick 0.2 mg/dL (0.2 mg/dL) Urine Leukocyte Esterase Negative (NEG) Urine RBC 0 /HPF (0-2) Urine WBC 0 /HPF (0-4) Urine Squamous Epithelial Cells Few /LPF Urine Bacteria 0 /HPF (0-FEW) Urine Opiates Screen Neg (NEG) Urine Methadone Screen Neg (NEG) Urine Barbiturates Neg (NEG) Urine Phencyclidine Screen Neg (NEG) Urine Amphetamine/Methamphetamine Neg (NEG) Urine Benzodiazepines Screen Neg (NEG) Urine Cocaine Screen Neg (NEG) Urine Cannabinoids Screen Neg (NEG) Urine Ethyl Alcohol Neg (NEG) Laboratory Tests Test 12/14/16 11:55 12/14/16 12:35 White Blood Count 6.5 x10^3/uL (4.0-11.0) Red Blood Count 5.04 x10^6/uL (3.50-5.40) Hemoglobin 15.6 g/dL (12.0-15.5) Hematocrit 46.5 % (36.0-47.0) Mean Corpuscular Volume 92 fL (79-100) Mean Corpuscular Hemoglobin 31 pg (25-35) Mean Corpuscular Hemoglobin Concent 34 g/dL (31-37) Red Cell Distribution Width 15.4 % (11.5-14.5) Platelet Count 343 x10^3/uL (140-400) Neutrophils (%) (Auto) 46 % (31-73) Lymphocytes (%) (Auto) 41 % (24-48) Monocytes (%) (Auto) 11 % (0-9) Eosinophils (%) (Auto) 1 % (0-3) Basophils (%) (Auto) 1 % (0-3) Neutrophils # (Auto) 3.0 x10^3uL (1.8-7.7) Lymphocytes # (Auto) 2.7 x10^3/uL (1.0-4.8) Monocytes # (Auto) 0.7 x10^3/uL (0.0-1.1) Eosinophils # (Auto) 0.1 x10^3/uL (0.0-0.7) Basophils # (Auto) 0.0 x10^3/uL (0.0-0.2) Prothrombin Time 12.6 SEC (11.7-14.0) Prothromb Time International Ratio 1.0 (0.8-1.1) Activated Partial Thromboplast Time 27 SEC (24-38) Sodium Level 138 mmol/L (136-145) Potassium Level 3.1 mmol/L (3.5-5.1) Chloride Level 100 mmol/L (98-107) Carbon Dioxide Level 26 mmol/L (21-32) Anion Gap 12 (6-14) Blood Urea Nitrogen 15 mg/dL (7-20) Creatinine 1.0 mg/dL (0.6-1.0) Estimated GFR (Cockcroft-Gault) 66.7 BUN/Creatinine Ratio 15 (6-20) Glucose Level 155 mg/dL (70-99) Calcium Level 11.0 mg/dL (8.5-10.1) Magnesium Level 2.1 mg/dL (1.8-2.4) Total Bilirubin 0.3 mg/dL (0.2-1.0) Aspartate Amino Transf (AST/SGOT) 32 U/L (15-37) Alanine Aminotransferase (ALT/SGPT) 46 U/L (14-59) Alkaline Phosphatase 175 U/L (46-116) Troponin I Quantitative 0.017 ng/mL (0.000-0.055) IT-Xsz-W-Type Natriuretic Peptide 32 pg/mL (0-124) Total Protein 8.9 g/dL (6.4-8.2) Albumin 4.5 g/dL (3.4-5.0) Albumin/Globulin Ratio 1.0 (1.0-1.7) Thyroid Stimulating Hormone (TSH) 1.034 uIU/mL (0.358-3.74) Salicylates Level < 2.8 mg/dL (2.8-20.0) Salicylate Last Dose Date Salicylate Last Dose Time Acetaminophen Level < 2 mcg/ml (10-30) Acetaminophen Last Dose Date Acetaminophen Last Dose Time Ethyl Alcohol Level < 10 mg/dL (0-10) Urine Collection Type Unknown Urine Color Yellow Urine Clarity Clear Urine pH 7.5 Urine Specific Broussard <=1.005 Urine Protein Negative mg/dL (NEG-TRACE) Urine Glucose (UA) Negative mg/dL (NEG) Urine Ketones (Stick) Negative mg/dL (NEG) Urine Blood Negative (NEG) Urine Nitrite Negative (NEG) Urine Bilirubin Negative (NEG) Urine Urobilinogen Dipstick 0.2 mg/dL (0.2 mg/dL) Urine Leukocyte Esterase Negative (NEG) Urine RBC 0 /HPF (0-2) Urine WBC 0 /HPF (0-4) Urine Squamous Epithelial Cells Few /LPF Urine Bacteria 0 /HPF (0-FEW) Urine Opiates Screen Neg (NEG) Urine Methadone Screen Neg (NEG) Urine Barbiturates Neg (NEG) Urine Phencyclidine Screen Neg (NEG) Urine Amphetamine/Methamphetamine Neg (NEG) Urine Benzodiazepines Screen Neg (NEG) Urine Cocaine Screen Neg (NEG) Urine Cannabinoids Screen Neg (NEG) Urine Ethyl Alcohol Neg (NEG) Assessment/Plan Assessment/Plan 1. Keya Mathew is a pleasant 66-year-old woman who had several hours today where she had loss of memory and confusion. This sounds consistent with transient global amnesia. I'm relieved that she appears back to normal. The neurologic examination was completely normal. The CT scan of her head was not revealing. She is concerned about a family history of an abnormal blood vessel with several family members possess. She has had 2 episodes of confusion. The last episode was 2 years ago associated with her mother's which was a stressful event. It's not clear if she's had a stressful event recently but the anniversary of her mother's was December 11. I would like to make sure that she did not have a stroke in the temporal lobe or parietal region. To this end I will obtain an MRI of the brain without contrast. We will also obtain an MRA of the intracranial arteries to evaluate for an abnormal blood vessel. We can also obtain a carotid Doppler to evaluate for stenosis and an echocardiogram to evaluate for a cardioembolic source. It would be reasonable to use a baby aspirin a day as a cautionary measure. MARYA PINEDA MD Dec 14, 2016 21:33
[2016-12-14 22:57] VITALS: BP 104/62
--- NOTE | 2016-12-14 23:47 | ACF ---
Admit Criteria Forms Admit Criteria Forms Admit Criteria Forms MENTAL STATUS CHANGE Clinical Indications for Inpatient Care (Place 'X' for any and all applicable criteria): Ongoing inpatient care may be needed for 1 or more of the following(1)(2)(3)(5)( 6): [X]I. Suspected serious etiology (eg, medical disorder, [employer] event) of altered mental status [ ]II. Danger to self or others not manageable at lower level of care [ ]III. Grave disability (eg, inability to perform self care necessary at lower level of care) [ ]IV. Agitation or inappropriate behavior interfering with care for primary condition (eg, attempting to discontinue lines or drains prematurely, unable to cooperate with respiratory care) [ ]V. Delirium [A] [D][E] as described by 1 or more of the following(26): [ ]a) Delirium due to alcohol or sedative [F] withdrawal [ ]b) Delirium of uncertain etiology that has not responded to appropriate empiric treatment [ ]c) Delirium that prevents performance of a life-sustaining function (eg, feeding or hydrating oneself) [ ]. General contraindications and/or Inappropriate clinical situations for Observational Care in patients with Mental Status Change, when ANY ONE of the following is required: [ ]a) Prediction of prolongation of LOS based on ANY ONE of the following may be considered as a contraindication for observational care 2, 3, 4, 5, 6, 7, 8, 9, 10, 11 [ ]i) Age > 65 yrs. [ ]ii) Patient arriving by ambulance [ ]iii) Patient with high acuity [ ]iv) Patient requiring vital sign monitoring [ ]v) Patient on IV medication [ ]b) Systolic blood pressures greater than or equal to 180mmHg 3, 12 [ ]c) Patient with altered mental status including delirium and other alteration of consciousness, (3) [ ]d) Patient whose discharge disposition will be to a intermediate home or rehabilitation home should not be managed in Emergency Department Observation Unit. CMS rule requires 3 days hospital stay before such placement.3,13 [ ]e) Patient with failure to thrive due to broad array of etiologies 3,16,17 [ ]f) Inability to ambulate 3,14 Extended stay beyond goal length of stay for the primary condition may be needed until ALL of the following are present(3)(5): [ ]a) Underlying medical etiology of mental status change is absent, or has been established and adequately treated [ ]b) Danger to self or others is absent or manageable at lower level of care. [ ]c) Behavior crisis management, including physical or chemical restraints, is not required or available at lower level of car [ ]d) Substance or alcohol withdrawal is absent or manageable at lower level of care. [ ]e) Behavioral symptoms (eg, agitation, somnolence, inappropriate behavior) are absent, or are manageable at lower level of care. The original [facility] [employer] content created by [facility] has been revised. The portions of the content which have been revised are identified through the use of italic text or in bold, and [facility] has neither reviewed nor approved the modified material. All other unmodified content is copyright [facility]. Please see references footnoted in the original [facility] [employer] edition 2016 MICHAELA DELA CRUZ Dec 14, 2016 23:47
[2016-12-15 03:02] VITALS: BP 106/52
[2016-12-15 06:08] LABS: BASO % 1 % (0-3); EOS % 3 % (0-3); HEMATOCRIT 40.6 % (36.0-47.0); HEMOGLOBIN 13.5 g/dL (12.0-15.5); LYMPH # 1.8 x10^3/uL (1.0-4.8); LYMPH % 33 % (24-48); MEAN CORPUSCULAR HEMOGLOBIN 31 pg (25-35); MEAN CORPUSCULAR HGB CONC 33 g/dL (31-37); MEAN CORPUSCULAR VOLUME 93 fL (79-100); MONO % 12 % (0-9); NEUT % 51 % (31-73); PLATELET COUNT 301 x10^3/uL (140-400); RED BLOOD COUNT 4.39 x10^6/uL (3.50-5.40); RED CELL DISTRIBUTION WIDTH 15.3 % (11.5-14.5); WHITE BLOOD COUNT 5.4 x10^3/uL (4.0-11.0)
[2016-12-15 06:32] LABS: CALCIUM 8.7 mg/dL (8.5-10.1); CREATININE 0.9 mg/dL (0.6-1.0); GFR 75.3; POTASSIUM 3.3 mmol/L (3.5-5.1)
[2016-12-15 07:00] VITALS: BP 114/60
[2016-12-15] MEDS ORDERED: PANTOPRAZOLE 40 MG TABLET.DR. PO SCH (07:30)
[2016-12-15] MEDS ORDERED: IOHEXOL 350 MG/ML 100 ML VIAL. IV ONE (08:00)
[2016-12-15] MEDS ORDERED: CONTRAST GIVEN MC PRN (08:00)
[2016-12-15] MEDS ORDERED: ASPIRIN ENTERIC COATED 81 MG TABLET.DR. PO SCH (08:00)
[2016-12-15] MEDS ORDERED: TRIAMTERENE/HCTZ 37.5/25MG TABLET. PO SCH (09:00)
[2016-12-15] MEDS ORDERED: amLODIPine BESYLATE 5 MG TABLET PO SCH (09:00)
[2016-12-15] MEDS ORDERED: ATORVASTATIN CALCIUM 20 MG TABLET PO SCH (09:00)
--- NOTE | 2016-12-15 09:51 | PDOC ---
PROGRESS NOTES Chief Complaint Chief Complaint CC: ams A/P Brief loss of memory/ Confusion: unclear etiology imaging studies pending. Hypertension: Stable, continue current regimen, as needed hydralazine if systolic blood pressure more than 165 mmHg. Hypokalemia: Potassium has been replaced. Labs reviewed. Vitals Vitals Vital Signs Date Time Temp Pulse Resp B/P (MAP) Pulse Ox O2 Delivery O2 Flow Rate FiO2 12/15/16 08:59 56 114/60 12/15/16 07:00 98.1 18 100 Room Air 98.1 Physical Exam General: Alert, Oriented X3 Heart: Normal S1, Normal S2 Lungs: Clear Abdomen: Normal bowel sounds, Soft Extremities: No clubbing Labs LABS Laboratory Tests Test 12/14/16 11:55 12/14/16 12:35 12/15/16 05:05 White Blood Count 6.5 x10^3/uL (4.0-11.0) 5.4 x10^3/uL (4.0-11.0) Red Blood Count 5.04 x10^6/uL (3.50-5.40) 4.39 x10^6/uL (3.50-5.40) Hemoglobin 15.6 g/dL (12.0-15.5) 13.5 g/dL (12.0-15.5) Hematocrit 46.5 % (36.0-47.0) 40.6 % (36.0-47.0) Mean Corpuscular Volume 92 fL (79-100) 93 fL (79-100) Mean Corpuscular Hemoglobin 31 pg (25-35) 31 pg (25-35) Mean Corpuscular Hemoglobin Concent 34 g/dL (31-37) 33 g/dL (31-37) Red Cell Distribution Width 15.4 % (11.5-14.5) 15.3 % (11.5-14.5) Platelet Count 343 x10^3/uL (140-400) 301 x10^3/uL (140-400) Neutrophils (%) (Auto) 46 % (31-73) 51 % (31-73) Lymphocytes (%) (Auto) 41 % (24-48) 33 % (24-48) Monocytes (%) (Auto) 11 % (0-9) 12 % (0-9) Eosinophils (%) (Auto) 1 % (0-3) 3 % (0-3) Basophils (%) (Auto) 1 % (0-3) 1 % (0-3) Neutrophils # (Auto) 3.0 x10^3uL (1.8-7.7) 2.8 x10^3uL (1.8-7.7) Lymphocytes # (Auto) 2.7 x10^3/uL (1.0-4.8) 1.8 x10^3/uL (1.0-4.8) Monocytes # (Auto) 0.7 x10^3/uL (0.0-1.1) 0.7 x10^3/uL (0.0-1.1) Eosinophils # (Auto) 0.1 x10^3/uL (0.0-0.7) 0.2 x10^3/uL (0.0-0.7) Basophils # (Auto) 0.0 x10^3/uL (0.0-0.2) 0.0 x10^3/uL (0.0-0.2) Prothrombin Time 12.6 SEC (11.7-14.0) Prothromb Time International Ratio 1.0 (0.8-1.1) Activated Partial Thromboplast Time 27 SEC (24-38) Sodium Level 138 mmol/L (136-145) 140 mmol/L (136-145) Potassium Level 3.1 mmol/L (3.5-5.1) 3.3 mmol/L (3.5-5.1) Chloride Level 100 mmol/L (98-107) 107 mmol/L (98-107) Carbon Dioxide Level 26 mmol/L (21-32) 26 mmol/L (21-32) Anion Gap 12 (6-14) 7 (6-14) Blood Urea Nitrogen 15 mg/dL (7-20) 17 mg/dL (7-20) Creatinine 1.0 mg/dL (0.6-1.0) 0.9 mg/dL (0.6-1.0) Estimated GFR (Cockcroft-Gault) 66.7 75.3 BUN/Creatinine Ratio 15 (6-20) Glucose Level 155 mg/dL (70-99) 116 mg/dL (70-99) Calcium Level 11.0 mg/dL (8.5-10.1) 8.7 mg/dL (8.5-10.1) Magnesium Level 2.1 mg/dL (1.8-2.4) Total Bilirubin 0.3 mg/dL (0.2-1.0) Aspartate Amino Transf (AST/SGOT) 32 U/L (15-37) Alanine Aminotransferase (ALT/SGPT) 46 U/L (14-59) Alkaline Phosphatase 175 U/L (46-116) Troponin I Quantitative 0.017 ng/mL (0.000-0.055) PQ-Mxn-G-Type Natriuretic Peptide 32 pg/mL (0-124) Total Protein 8.9 g/dL (6.4-8.2) Albumin 4.5 g/dL (3.4-5.0) Albumin/Globulin Ratio 1.0 (1.0-1.7) Thyroid Stimulating Hormone (TSH) 1.034 uIU/mL (0.358-3.74) Salicylates Level < 2.8 mg/dL (2.8-20.0) Salicylate Last Dose Date Salicylate Last Dose Time Acetaminophen Level < 2 mcg/ml (10-30) Acetaminophen Last Dose Date Acetaminophen Last Dose Time Ethyl Alcohol Level < 10 mg/dL (0-10) Urine Collection Type Unknown Urine Color Yellow Urine Clarity Clear Urine pH 7.5 Urine Specific [place] <=1.005 Urine Protein Negative mg/dL (NEG-TRACE) Urine Glucose (UA) Negative mg/dL (NEG) Urine Ketones (Stick) Negative mg/dL (NEG) Urine Blood Negative (NEG) Urine Nitrite Negative (NEG) Urine Bilirubin Negative (NEG) Urine Urobilinogen Dipstick 0.2 mg/dL (0.2 mg/dL) Urine Leukocyte Esterase Negative (NEG) Urine RBC 0 /HPF (0-2) Urine WBC 0 /HPF (0-4) Urine Squamous Epithelial Cells Few /LPF Urine Bacteria 0 /HPF (0-FEW) Urine Opiates Screen Neg (NEG) Urine Methadone Screen Neg (NEG) Urine Barbiturates Neg (NEG) Urine Phencyclidine Screen Neg (NEG) Urine Amphetamine/Methamphetamine Neg (NEG) Urine Benzodiazepines Screen Neg (NEG) Urine Cocaine Screen Neg (NEG) Urine Cannabinoids Screen Neg (NEG) Urine Ethyl Alcohol Neg (NEG) Assessment and Plan Assessmemt and Plan Problems Medical Problems: (1) Encephalopathy acute Status: Acute (2) Hypokalemia Status: Acute Problems: Comment Review of Relevant I have reviewed the following items lizeth (where applicable) has been applied. Labs Laboratory Tests Test 12/14/16 11:55 12/14/16 12:35 12/15/16 05:05 White Blood Count 6.5 x10^3/uL (4.0-11.0) 5.4 x10^3/uL (4.0-11.0) Red Blood Count 5.04 x10^6/uL (3.50-5.40) 4.39 x10^6/uL (3.50-5.40) Hemoglobin 15.6 g/dL (12.0-15.5) 13.5 g/dL (12.0-15.5) Hematocrit 46.5 % (36.0-47.0) 40.6 % (36.0-47.0) Mean Corpuscular Volume 92 fL (79-100) 93 fL (79-100) Mean Corpuscular Hemoglobin 31 pg (25-35) 31 pg (25-35) Mean Corpuscular Hemoglobin Concent 34 g/dL (31-37) 33 g/dL (31-37) Red Cell Distribution Width 15.4 % (11.5-14.5) 15.3 % (11.5-14.5) Platelet Count 343 x10^3/uL (140-400) 301 x10^3/uL (140-400) Neutrophils (%) (Auto) 46 % (31-73) 51 % (31-73) Lymphocytes (%) (Auto) 41 % (24-48) 33 % (24-48) Monocytes (%) (Auto) 11 % (0-9) 12 % (0-9) Eosinophils (%) (Auto) 1 % (0-3) 3 % (0-3) Basophils (%) (Auto) 1 % (0-3) 1 % (0-3) Neutrophils # (Auto) 3.0 x10^3uL (1.8-7.7) 2.8 x10^3uL (1.8-7.7) Lymphocytes # (Auto) 2.7 x10^3/uL (1.0-4.8) 1.8 x10^3/uL (1.0-4.8) Monocytes # (Auto) 0.7 x10^3/uL (0.0-1.1) 0.7 x10^3/uL (0.0-1.1) Eosinophils # (Auto) 0.1 x10^3/uL (0.0-0.7) 0.2 x10^3/uL (0.0-0.7) Basophils # (Auto) 0.0 x10^3/uL (0.0-0.2) 0.0 x10^3/uL (0.0-0.2) Prothrombin Time 12.6 SEC (11.7-14.0) Prothromb Time International Ratio 1.0 (0.8-1.1) Activated Partial Thromboplast Time 27 SEC (24-38) Sodium Level 138 mmol/L (136-145) 140 mmol/L (136-145) Potassium Level 3.1 mmol/L (3.5-5.1) 3.3 mmol/L (3.5-5.1) Chloride Level 100 mmol/L (98-107) 107 mmol/L (98-107) Carbon Dioxide Level 26 mmol/L (21-32) 26 mmol/L (21-32) Anion Gap 12 (6-14) 7 (6-14) Blood Urea Nitrogen 15 mg/dL (7-20) 17 mg/dL (7-20) Creatinine 1.0 mg/dL (0.6-1.0) 0.9 mg/dL (0.6-1.0) Estimated GFR (Cockcroft-Gault) 66.7 75.3 BUN/Creatinine Ratio 15 (6-20) Glucose Level 155 mg/dL (70-99) 116 mg/dL (70-99) Calcium Level 11.0 mg/dL (8.5-10.1) 8.7 mg/dL (8.5-10.1) Magnesium Level 2.1 mg/dL (1.8-2.4) Total Bilirubin 0.3 mg/dL (0.2-1.0) Aspartate Amino Transf (AST/SGOT) 32 U/L (15-37) Alanine Aminotransferase (ALT/SGPT) 46 U/L (14-59) Alkaline Phosphatase 175 U/L (46-116) Troponin I Quantitative 0.017 ng/mL (0.000-0.055) IC-Nud-Q-Type Natriuretic Peptide 32 pg/mL (0-124) Total Protein 8.9 g/dL (6.4-8.2) Albumin 4.5 g/dL (3.4-5.0) Albumin/Globulin Ratio 1.0 (1.0-1.7) Thyroid Stimulating Hormone (TSH) 1.034 uIU/mL (0.358-3.74) Salicylates Level < 2.8 mg/dL (2.8-20.0) Salicylate Last Dose Date Salicylate Last Dose Time Acetaminophen Level < 2 mcg/ml (10-30) Acetaminophen Last Dose Date Acetaminophen Last Dose Time Ethyl Alcohol Level < 10 mg/dL (0-10) Urine Collection Type Unknown Urine Color Yellow Urine Clarity Clear Urine pH 7.5 Urine Specific [place] <=1.005 Urine Protein Negative mg/dL (NEG-TRACE) Urine Glucose (UA) Negative mg/dL (NEG) Urine Ketones (Stick) Negative mg/dL (NEG) Urine Blood Negative (NEG) Urine Nitrite Negative (NEG) Urine Bilirubin Negative (NEG) Urine Urobilinogen Dipstick 0.2 mg/dL (0.2 mg/dL) Urine Leukocyte Esterase Negative (NEG) Urine RBC 0 /HPF (0-2) Urine WBC 0 /HPF (0-4) Urine Squamous Epithelial Cells Few /LPF Urine Bacteria 0 /HPF (0-FEW) Urine Opiates Screen Neg (NEG) Urine Methadone Screen Neg (NEG) Urine Barbiturates Neg (NEG) Urine Phencyclidine Screen Neg (NEG) Urine Amphetamine/Methamphetamine Neg (NEG) Urine Benzodiazepines Screen Neg (NEG) Urine Cocaine Screen Neg (NEG) Urine Cannabinoids Screen Neg (NEG) Urine Ethyl Alcohol Neg (NEG) Laboratory Tests Test 12/14/16 11:55 12/14/16 12:35 12/15/16 05:05 White Blood Count 6.5 x10^3/uL (4.0-11.0) 5.4 x10^3/uL (4.0-11.0) Red Blood Count 5.04 x10^6/uL (3.50-5.40) 4.39 x10^6/uL (3.50-5.40) Hemoglobin 15.6 g/dL (12.0-15.5) 13.5 g/dL (12.0-15.5) Hematocrit 46.5 % (36.0-47.0) 40.6 % (36.0-47.0) Mean Corpuscular Volume 92 fL (79-100) 93 fL (79-100) Mean Corpuscular Hemoglobin 31 pg (25-35) 31 pg (25-35) Mean Corpuscular Hemoglobin Concent 34 g/dL (31-37) 33 g/dL (31-37) Red Cell Distribution Width 15.4 % (11.5-14.5) 15.3 % (11.5-14.5) Platelet Count 343 x10^3/uL (140-400) 301 x10^3/uL (140-400) Neutrophils (%) (Auto) 46 % (31-73) 51 % (31-73) Lymphocytes (%) (Auto) 41 % (24-48) 33 % (24-48) Monocytes (%) (Auto) 11 % (0-9) 12 % (0-9) Eosinophils (%) (Auto) 1 % (0-3) 3 % (0-3) Basophils (%) (Auto) 1 % (0-3) 1 % (0-3) Neutrophils # (Auto) 3.0 x10^3uL (1.8-7.7) 2.8 x10^3uL (1.8-7.7) Lymphocytes # (Auto) 2.7 x10^3/uL (1.0-4.8) 1.8 x10^3/uL (1.0-4.8) Monocytes # (Auto) 0.7 x10^3/uL (0.0-1.1) 0.7 x10^3/uL (0.0-1.1) Eosinophils # (Auto) 0.1 x10^3/uL (0.0-0.7) 0.2 x10^3/uL (0.0-0.7) Basophils # (Auto) 0.0 x10^3/uL (0.0-0.2) 0.0 x10^3/uL (0.0-0.2) Prothrombin Time 12.6 SEC (11.7-14.0) Prothromb Time International Ratio 1.0 (0.8-1.1) Activated Partial Thromboplast Time 27 SEC (24-38) Sodium Level 138 mmol/L (136-145) 140 mmol/L (136-145) Potassium Level 3.1 mmol/L (3.5-5.1) 3.3 mmol/L (3.5-5.1) Chloride Level 100 mmol/L (98-107) 107 mmol/L (98-107) Carbon Dioxide Level 26 mmol/L (21-32) 26 mmol/L (21-32) Anion Gap 12 (6-14) 7 (6-14) Blood Urea Nitrogen 15 mg/dL (7-20) 17 mg/dL (7-20) Creatinine 1.0 mg/dL (0.6-1.0) 0.9 mg/dL (0.6-1.0) Estimated GFR (Cockcroft-Gault) 66.7 75.3 BUN/Creatinine Ratio 15 (6-20) Glucose Level 155 mg/dL (70-99) 116 mg/dL (70-99) Calcium Level 11.0 mg/dL (8.5-10.1) 8.7 mg/dL (8.5-10.1) Magnesium Level 2.1 mg/dL (1.8-2.4) Total Bilirubin 0.3 mg/dL (0.2-1.0) Aspartate Amino Transf (AST/SGOT) 32 U/L (15-37) Alanine Aminotransferase (ALT/SGPT) 46 U/L (14-59) Alkaline Phosphatase 175 U/L (46-116) Troponin I Quantitative 0.017 ng/mL (0.000-0.055) PY-Fol-K-Type Natriuretic Peptide 32 pg/mL (0-124) Total Protein 8.9 g/dL (6.4-8.2) Albumin 4.5 g/dL (3.4-5.0) Albumin/Globulin Ratio 1.0 (1.0-1.7) Thyroid Stimulating Hormone (TSH) 1.034 uIU/mL (0.358-3.74) Salicylates Level < 2.8 mg/dL (2.8-20.0) Salicylate Last Dose Date Salicylate Last Dose Time Acetaminophen Level < 2 mcg/ml (10-30) Acetaminophen Last Dose Date Acetaminophen Last Dose Time Ethyl Alcohol Level < 10 mg/dL (0-10) Urine Collection Type Unknown Urine Color Yellow Urine Clarity Clear Urine pH 7.5 Urine Specific [place] <=1.005 Urine Protein Negative mg/dL (NEG-TRACE) Urine Glucose (UA) Negative mg/dL (NEG) Urine Ketones (Stick) Negative mg/dL (NEG) Urine Blood Negative (NEG) Urine Nitrite Negative (NEG) Urine Bilirubin Negative (NEG) Urine Urobilinogen Dipstick 0.2 mg/dL (0.2 mg/dL) Urine Leukocyte Esterase Negative (NEG) Urine RBC 0 /HPF (0-2) Urine WBC 0 /HPF (0-4) Urine Squamous Epithelial Cells Few /LPF Urine Bacteria 0 /HPF (0-FEW) Urine Opiates Screen Neg (NEG) Urine Methadone Screen Neg (NEG) Urine Barbiturates Neg (NEG) Urine Phencyclidine Screen Neg (NEG) Urine Amphetamine/Methamphetamine Neg (NEG) Urine Benzodiazepines Screen Neg (NEG) Urine Cocaine Screen Neg (NEG) Urine Cannabinoids Screen Neg (NEG) Urine Ethyl Alcohol Neg (NEG) Medications Current Medications Sodium Chloride 1,000 ml @ 1,000 mls/hr 1X ONCE IV Last administered on 12:15; Start 12/14/16 at 12:15; Stop 12/14/16 at 13:14; Status DC Potassium Chloride (Klor-Con) 40 meq 1X ONCE PO Last administered on 12/14/16t 15:45; Start 12/14/16 at 13:15; Stop 12/14/16 at 13:16; Status DC Ondansetron HCl (Zofran) 4 mg PRN Q8HRS PRN IV NAUSEA/VOMITING; Start 12/14/16 at 13:15; Stop 12/14/16 at 17:41; Status DC Acetaminophen (Tylenol) 325 mg PRN Q6HRS PRN PO MILD PAIN / TEMP; Start at 15:00 Hydralazine HCl (Apresoline) 10 mg PRN Q4HRS PRN IVP ELEVATED BP, SEE COMMENTS ; Start 12/14/16 at 15:00 Ondansetron HCl (Zofran) 4 mg PRN Q8HRS PRN IV NAUSEA/VOMITING; Start 12/14/16 at 15:00 Albuterol Sulfate (Ventolin Neb Soln) 2.5 mg PRN Q4HRS PRN NEB SHORTNESS OF BREATH; Start 12/14/16 at 15:00 Amlodipine Besylate (Norvasc) 5 mg DAILY PO Last administered on 12/15/16 08: 59; Start 12/15/16 at 09:00 Atorvastatin Calcium (Lipitor) 20 mg DAILY PO Last administered on 12/15/16 08 :57; Start 12/15/16 at 09:00 Diclofenac Sodium (Voltaren) 1 tito QID TP ; Start 12/14/16 at 21:00; Stop at 21:00; Status DC Dicyclomine HCl (Bentyl) 10 mg TID PO ; Start 12/14/16 at 21:00; Stop 12/14/16 at 21:00; Status DC Fluocinonide (Lidex) 1 ttio BID TP ; Start 12/14/16 at 21:00; Stop 12/14/16 at 21: 00; Status DC Ketoconazole (Nizoral 2% Topical) 1 tito BID TP ; Start 12/14/16 at 21:00; Stop at 21:00; Status DC Pantoprazole Sodium (Protonix) 40 mg DAILYAC PO Last administered on 12/15/16 08:58; Start 12/15/16 at 07:30 Triamterene/HCTZ (Maxzide 37.5/ 25mg) 1 tab DAILY PO Last administered on 08:57; Start 12/15/16 at 09:00 Ibuprofen (Motrin) 400 mg PRN Q6HRS PRN PO INFLAMMATION; Start 12/14/16 at 17:45 ; Stop 12/15/16 at 17:44 Potassium Chloride (Klor-Con) 20 meq 1X ONCE PO Last administered on 12/14/16 18:25; Start 12/14/16 at 18:00; Stop 12/14/16 at 18:01; Status DC Iohexol (Omnipaque 350 Mg/ml) 75 ml 1X ONCE IV ; Start 12/14/16 at 18:30; Stop 12/14/16 at 18:31; Status DC Info (Do NOT chart on this entry -- for MONITORING) 1 each PRN DAILY PRN MC SEE COMMENTS; Start 12/14/16 at 18:00; Stop 12/16/16 at 17:59 Aspirin (Ecotrin) 81 mg DAILYWBKFT PO Last administered on 12/15/16 08:57; Start 12/15/16 at 08:00 Iohexol (Omnipaque 350 Mg/ml) 75 ml 1X ONCE IV Last administered on 12/15/16 08:42; Start 12/15/16 at 08:00; Stop 12/15/16 at 08:01; Status DC Info (Do NOT chart on this entry -- for MONITORING) 1 each PRN DAILY PRN MC SEE COMMENTS; Start 12/15/16 at 08:00; Stop 12/17/16 at 07:59 Active Scripts Active Reported Amlodipine Besylate 5 Mg Tablet 5 Mg PO DAILY Calcium + D3 Er Tablet (Calcium Carb & Cit/Vitamin D3) 1 Each Tablet.er 1 Each PO Klor-Con M20 (Potassium Chloride) 20 Meq Tab.er.prt 1 Tab PO BID Triamterene-Hctz 37.5-25 Mg Cp (Triamterene/Hydrochlorothiazid) 1 Each Capsule 1 Cap PO DAILY Omeprazole 40 Mg Capsule.dr 1 Cap PO DAILY Atorvastatin Calcium 20 Mg Tablet 1 Tab PO DAILY One Daily For Women Tablet (Folic Acid/Mv,Fe,Other Min) 1 Each Tablet 1 Each PO Biotin 2,500 Mcg Capsule 5,000 Mcg PO Ketoconazole 15 Gm Cream..g. 1 Tito TP BID Fluocinonide 15 Gm Cream..g. 1 Tito TP BID Dicyclomine Hcl 10 Mg Capsule 1 Cap PO TID Voltaren (Diclofenac Sodium) 100 Gm Gel..gram. 1 Gm TP QID No Known Medications Prior To Admisstion (Info) Each 1 Each Vitals/I & O Vital Sign - Last 24 Hours 12/14/16 12/14/16 12/14/16 12/14/16 11:48 13:05 14:40 14:44 Temp 98.1 98.3 98.3 98.1 98.3 98.3 Pulse 92 80 86 86 Resp 16 16 15 15 B/P (MAP) 165/75 (105) 133/79 (97) 123/61 (81) 123/61 (81) Pulse Ox 99 99 100 100 O2 Delivery Room Air Room Air Room Air Room Air 12/14/16 12/14/16 12/14/16 12/14/16 19:00 19:52 21:16 22:57 Temp 101.3 98.6 98.1 101.3 98.6 98.1 Pulse 71 65 Resp 16 16 B/P (MAP) 109/56 (73) 104/62 (76) Pulse Ox 100 98 O2 Delivery Room Air Room Air Room Air 12/15/16 12/15/16 12/15/16 03:02 07:00 08:59 Temp 98.1 98.1 98.1 98.1 Pulse 66 56 56 Resp 18 18 B/P (MAP) 106/52 (70) 114/60 (78) 114/60 Pulse Ox 97 100 O2 Delivery Room Air Room Air Intake and Output 12/14/16 12/14/16 12/15/16 15:00 23:00 07:00 Intake Total 120 ml 120 ml Balance 120 ml 120 ml SERENITY ANDERSON MD Dec 15, 2016 09:51
[2016-12-15] MEDS ORDERED: POTASSIUM CHLORIDE 20 MEQ TABLET.ER. PO ONE (10:00)
--- NOTE | 2016-12-15 10:49 | PDOC ---
PROGRESS NOTES Assessment Problems Medical Problems: (1) Encephalopathy acute Status: Acute (2) Hypokalemia Status: Acute Transient global amnesia unless proven otherwise by workup. It is unusual to have a 2nd episode, but I suspect the first episode 2 years ago was this, also. She is back to normal baseline. Plan Await ordered workup Aim for discharge later today I reassured the patient that this diagnosis is benign and that we very rarely find an etiology. Aspirin 81 mg daily Subjective No complaints, does have a hole in her memory for about 2 hours yesterday Objective Vital Signs Date Time Temp Pulse Resp B/P (MAP) Pulse Ox O2 Delivery O2 Flow Rate FiO2 12/15/16 08:59 56 114/60 12/15/16 08:00 Room Air 12/15/16 07:00 98.1 18 100 98.1 Intake and Output 12/15/16 07:00 Intake Total 240 ml Balance 240 ml Intake Oral 240 ml # Voids 2 PHYSICAL EXAM Alert. Oriented to time, place and person. PERRL. EOMI. CN: no focal findings. Muscle tone: normal. Muscle strength: 5/5 DTR: 2+ Plantar reflex: flexor Gait: normal Sensory exam: no abnormal findings. No cerebellar signs elicited. Review of Relevant I have reviewed the following items lizeth (where applicable) has been applied. Labs Laboratory Tests Test 12/14/16 11:55 12/14/16 12:35 12/15/16 05:05 White Blood Count 6.5 x10^3/uL (4.0-11.0) 5.4 x10^3/uL (4.0-11.0) Red Blood Count 5.04 x10^6/uL (3.50-5.40) 4.39 x10^6/uL (3.50-5.40) Hemoglobin 15.6 g/dL (12.0-15.5) 13.5 g/dL (12.0-15.5) Hematocrit 46.5 % (36.0-47.0) 40.6 % (36.0-47.0) Mean Corpuscular Volume 92 fL (79-100) 93 fL (79-100) Mean Corpuscular Hemoglobin 31 pg (25-35) 31 pg (25-35) Mean Corpuscular Hemoglobin Concent 34 g/dL (31-37) 33 g/dL (31-37) Red Cell Distribution Width 15.4 % (11.5-14.5) 15.3 % (11.5-14.5) Platelet Count 343 x10^3/uL (140-400) 301 x10^3/uL (140-400) Neutrophils (%) (Auto) 46 % (31-73) 51 % (31-73) Lymphocytes (%) (Auto) 41 % (24-48) 33 % (24-48) Monocytes (%) (Auto) 11 % (0-9) 12 % (0-9) Eosinophils (%) (Auto) 1 % (0-3) 3 % (0-3) Basophils (%) (Auto) 1 % (0-3) 1 % (0-3) Neutrophils # (Auto) 3.0 x10^3uL (1.8-7.7) 2.8 x10^3uL (1.8-7.7) Lymphocytes # (Auto) 2.7 x10^3/uL (1.0-4.8) 1.8 x10^3/uL (1.0-4.8) Monocytes # (Auto) 0.7 x10^3/uL (0.0-1.1) 0.7 x10^3/uL (0.0-1.1) Eosinophils # (Auto) 0.1 x10^3/uL (0.0-0.7) 0.2 x10^3/uL (0.0-0.7) Basophils # (Auto) 0.0 x10^3/uL (0.0-0.2) 0.0 x10^3/uL (0.0-0.2) Prothrombin Time 12.6 SEC (11.7-14.0) Prothromb Time International Ratio 1.0 (0.8-1.1) Activated Partial Thromboplast Time 27 SEC (24-38) Sodium Level 138 mmol/L (136-145) 140 mmol/L (136-145) Potassium Level 3.1 mmol/L (3.5-5.1) 3.3 mmol/L (3.5-5.1) Chloride Level 100 mmol/L (98-107) 107 mmol/L (98-107) Carbon Dioxide Level 26 mmol/L (21-32) 26 mmol/L (21-32) Anion Gap 12 (6-14) 7 (6-14) Blood Urea Nitrogen 15 mg/dL (7-20) 17 mg/dL (7-20) Creatinine 1.0 mg/dL (0.6-1.0) 0.9 mg/dL (0.6-1.0) Estimated GFR (Cockcroft-Gault) 66.7 75.3 BUN/Creatinine Ratio 15 (6-20) Glucose Level 155 mg/dL (70-99) 116 mg/dL (70-99) Calcium Level 11.0 mg/dL (8.5-10.1) 8.7 mg/dL (8.5-10.1) Magnesium Level 2.1 mg/dL (1.8-2.4) Total Bilirubin 0.3 mg/dL (0.2-1.0) Aspartate Amino Transf (AST/SGOT) 32 U/L (15-37) Alanine Aminotransferase (ALT/SGPT) 46 U/L (14-59) Alkaline Phosphatase 175 U/L (46-116) Troponin I Quantitative 0.017 ng/mL (0.000-0.055) MJ-Vms-O-Type Natriuretic Peptide 32 pg/mL (0-124) Total Protein 8.9 g/dL (6.4-8.2) Albumin 4.5 g/dL (3.4-5.0) Albumin/Globulin Ratio 1.0 (1.0-1.7) Thyroid Stimulating Hormone (TSH) 1.034 uIU/mL (0.358-3.74) Salicylates Level < 2.8 mg/dL (2.8-20.0) Salicylate Last Dose Date Salicylate Last Dose Time Acetaminophen Level < 2 mcg/ml (10-30) Acetaminophen Last Dose Date Acetaminophen Last Dose Time Ethyl Alcohol Level < 10 mg/dL (0-10) Urine Collection Type Unknown Urine Color Yellow Urine Clarity Clear Urine pH 7.5 Urine Specific [place] <=1.005 Urine Protein Negative mg/dL (NEG-TRACE) Urine Glucose (UA) Negative mg/dL (NEG) Urine Ketones (Stick) Negative mg/dL (NEG) Urine Blood Negative (NEG) Urine Nitrite Negative (NEG) Urine Bilirubin Negative (NEG) Urine Urobilinogen Dipstick 0.2 mg/dL (0.2 mg/dL) Urine Leukocyte Esterase Negative (NEG) Urine RBC 0 /HPF (0-2) Urine WBC 0 /HPF (0-4) Urine Squamous Epithelial Cells Few /LPF Urine Bacteria 0 /HPF (0-FEW) Urine Opiates Screen Neg (NEG) Urine Methadone Screen Neg (NEG) Urine Barbiturates Neg (NEG) Urine Phencyclidine Screen Neg (NEG) Urine Amphetamine/Methamphetamine Neg (NEG) Urine Benzodiazepines Screen Neg (NEG) Urine Cocaine Screen Neg (NEG) Urine Cannabinoids Screen Neg (NEG) Urine Ethyl Alcohol Neg (NEG) Laboratory Tests Test 12/14/16 11:55 12/14/16 12:35 12/15/16 05:05 White Blood Count 6.5 x10^3/uL (4.0-11.0) 5.4 x10^3/uL (4.0-11.0) Red Blood Count 5.04 x10^6/uL (3.50-5.40) 4.39 x10^6/uL (3.50-5.40) Hemoglobin 15.6 g/dL (12.0-15.5) 13.5 g/dL (12.0-15.5) Hematocrit 46.5 % (36.0-47.0) 40.6 % (36.0-47.0) Mean Corpuscular Volume 92 fL (79-100) 93 fL (79-100) Mean Corpuscular Hemoglobin 31 pg (25-35) 31 pg (25-35) Mean Corpuscular Hemoglobin Concent 34 g/dL (31-37) 33 g/dL (31-37) Red Cell Distribution Width 15.4 % (11.5-14.5) 15.3 % (11.5-14.5) Platelet Count 343 x10^3/uL (140-400) 301 x10^3/uL (140-400) Neutrophils (%) (Auto) 46 % (31-73) 51 % (31-73) Lymphocytes (%) (Auto) 41 % (24-48) 33 % (24-48) Monocytes (%) (Auto) 11 % (0-9) 12 % (0-9) Eosinophils (%) (Auto) 1 % (0-3) 3 % (0-3) Basophils (%) (Auto) 1 % (0-3) 1 % (0-3) Neutrophils # (Auto) 3.0 x10^3uL (1.8-7.7) 2.8 x10^3uL (1.8-7.7) Lymphocytes # (Auto) 2.7 x10^3/uL (1.0-4.8) 1.8 x10^3/uL (1.0-4.8) Monocytes # (Auto) 0.7 x10^3/uL (0.0-1.1) 0.7 x10^3/uL (0.0-1.1) Eosinophils # (Auto) 0.1 x10^3/uL (0.0-0.7) 0.2 x10^3/uL (0.0-0.7) Basophils # (Auto) 0.0 x10^3/uL (0.0-0.2) 0.0 x10^3/uL (0.0-0.2) Prothrombin Time 12.6 SEC (11.7-14.0) Prothromb Time International Ratio 1.0 (0.8-1.1) Activated Partial Thromboplast Time 27 SEC (24-38) Sodium Level 138 mmol/L (136-145) 140 mmol/L (136-145) Potassium Level 3.1 mmol/L (3.5-5.1) 3.3 mmol/L (3.5-5.1) Chloride Level 100 mmol/L (98-107) 107 mmol/L (98-107) Carbon Dioxide Level 26 mmol/L (21-32) 26 mmol/L (21-32) Anion Gap 12 (6-14) 7 (6-14) Blood Urea Nitrogen 15 mg/dL (7-20) 17 mg/dL (7-20) Creatinine 1.0 mg/dL (0.6-1.0) 0.9 mg/dL (0.6-1.0) Estimated GFR (Cockcroft-Gault) 66.7 75.3 BUN/Creatinine Ratio 15 (6-20) Glucose Level 155 mg/dL (70-99) 116 mg/dL (70-99) Calcium Level 11.0 mg/dL (8.5-10.1) 8.7 mg/dL (8.5-10.1) Magnesium Level 2.1 mg/dL (1.8-2.4) Total Bilirubin 0.3 mg/dL (0.2-1.0) Aspartate Amino Transf (AST/SGOT) 32 U/L (15-37) Alanine Aminotransferase (ALT/SGPT) 46 U/L (14-59) Alkaline Phosphatase 175 U/L (46-116) Troponin I Quantitative 0.017 ng/mL (0.000-0.055) GT-Lyi-S-Type Natriuretic Peptide 32 pg/mL (0-124) Total Protein 8.9 g/dL (6.4-8.2) Albumin 4.5 g/dL (3.4-5.0) Albumin/Globulin Ratio 1.0 (1.0-1.7) Thyroid Stimulating Hormone (TSH) 1.034 uIU/mL (0.358-3.74) Salicylates Level < 2.8 mg/dL (2.8-20.0) Salicylate Last Dose Date Salicylate Last Dose Time Acetaminophen Level < 2 mcg/ml (10-30) Acetaminophen Last Dose Date Acetaminophen Last Dose Time Ethyl Alcohol Level < 10 mg/dL (0-10) Urine Collection Type Unknown Urine Color Yellow Urine Clarity Clear Urine pH 7.5 Urine Specific [place] <=1.005 Urine Protein Negative mg/dL (NEG-TRACE) Urine Glucose (UA) Negative mg/dL (NEG) Urine Ketones (Stick) Negative mg/dL (NEG) Urine Blood Negative (NEG) Urine Nitrite Negative (NEG) Urine Bilirubin Negative (NEG) Urine Urobilinogen Dipstick 0.2 mg/dL (0.2 mg/dL) Urine Leukocyte Esterase Negative (NEG) Urine RBC 0 /HPF (0-2) Urine WBC 0 /HPF (0-4) Urine Squamous Epithelial Cells Few /LPF Urine Bacteria 0 /HPF (0-FEW) Urine Opiates Screen Neg (NEG) Urine Methadone Screen Neg (NEG) Urine Barbiturates Neg (NEG) Urine Phencyclidine Screen Neg (NEG) Urine Amphetamine/Methamphetamine Neg (NEG) Urine Benzodiazepines Screen Neg (NEG) Urine Cocaine Screen Neg (NEG) Urine Cannabinoids Screen Neg (NEG) Urine Ethyl Alcohol Neg (NEG) Medications Current Medications Sodium Chloride 1,000 ml @ 1,000 mls/hr 1X ONCE IV Last administered on t 12:15; Start 12/14/16 at 12:15; Stop 12/14/16 at 13:14; Status DC Potassium Chloride (Klor-Con) 40 meq 1X ONCE PO Last administered on 12/14/16 15:45; Start 12/14/16 at 13:15; Stop 12/14/16 at 13:16; Status DC Ondansetron HCl (Zofran) 4 mg PRN Q8HRS PRN IV NAUSEA/VOMITING; Start 12/14/16 at 13:15; Stop 12/14/16 at 17:41; Status DC Acetaminophen (Tylenol) 325 mg PRN Q6HRS PRN PO MILD PAIN / TEMP; Start at 15:00 Hydralazine HCl (Apresoline) 10 mg PRN Q4HRS PRN IVP ELEVATED BP, SEE COMMENTS ; Start 12/14/16 at 15:00 Ondansetron HCl (Zofran) 4 mg PRN Q8HRS PRN IV NAUSEA/VOMITING; Start 12/14/16 at 15:00 Albuterol Sulfate (Ventolin Neb Soln) 2.5 mg PRN Q4HRS PRN NEB SHORTNESS OF BREATH; Start 12/14/16 at 15:00 Amlodipine Besylate (Norvasc) 5 mg DAILY PO Last administered on 12/15/16 08: 59; Start 12/15/16 at 09:00 Atorvastatin Calcium (Lipitor) 20 mg DAILY PO Last administered on 12/15/16 08 :57; Start 12/15/16 at 09:00 Diclofenac Sodium (Voltaren) 1 tito QID TP ; Start 12/14/16 at 21:00; Stop at 21:00; Status DC Dicyclomine HCl (Bentyl) 10 mg TID PO ; Start 12/14/16 at 21:00; Stop 12/14/16 at 21:00; Status DC Fluocinonide (Lidex) 1 tito BID TP ; Start 12/14/16 at 21:00; Stop 12/14/16 at 21: 00; Status DC Ketoconazole (Nizoral 2% Topical) 1 tito BID TP ; Start 12/14/16 at 21:00; Stop at 21:00; Status DC Pantoprazole Sodium (Protonix) 40 mg DAILYAC PO Last administered on 12/15/16 08:58; Start 12/15/16 at 07:30 Triamterene/HCTZ (Maxzide 37.5/ 25mg) 1 tab DAILY PO Last administered on 08:57; Start 12/15/16 at 09:00 Ibuprofen (Motrin) 400 mg PRN Q6HRS PRN PO INFLAMMATION; Start 12/14/16 at 17:45 ; Stop 12/15/16 at 17:44 Potassium Chloride (Klor-Con) 20 meq 1X ONCE PO Last administered on 12/14/16 18:25; Start 12/14/16 at 18:00; Stop 12/14/16 at 18:01; Status DC Iohexol (Omnipaque 350 Mg/ml) 75 ml 1X ONCE IV ; Start 12/14/16 at 18:30; Stop 12/14/16 at 18:31; Status DC Info (Do NOT chart on this entry -- for MONITORING) 1 each PRN DAILY PRN MC SEE COMMENTS; Start 12/14/16 at 18:00; Stop 12/16/16 at 17:59 Aspirin (Ecotrin) 81 mg DAILYWBKFT PO Last administered on 12/15/16 08:57; Start 12/15/16 at 08:00 Iohexol (Omnipaque 350 Mg/ml) 75 ml 1X ONCE IV Last administered on 12/15/16 08:42; Start 12/15/16 at 08:00; Stop 12/15/16 at 08:01; Status DC Info (Do NOT chart on this entry -- for MONITORING) 1 each PRN DAILY PRN MC SEE COMMENTS; Start 12/15/16 at 08:00; Stop 12/17/16 at 07:59 Potassium Chloride (Klor-Con) 40 meq 1X ONCE PO ; Start 12/15/16 at 10:00; Stop 12/15/16 at 10:01; Status DC Active Scripts Active Reported Amlodipine Besylate 5 Mg Tablet 5 Mg PO DAILY Calcium + D3 Er Tablet (Calcium Carb & Cit/Vitamin D3) 1 Each Tablet.er 1 Each PO Klor-Con M20 (Potassium Chloride) 20 Meq Tab.er.prt 1 Tab PO BID Triamterene-Hctz 37.5-25 Mg Cp (Triamterene/Hydrochlorothiazid) 1 Each Capsule 1 Cap PO DAILY Omeprazole 40 Mg Capsule. 1 Cap PO DAILY Atorvastatin Calcium 20 Mg Tablet 1 Tab PO DAILY One Daily For Women Tablet (Folic Acid/Mv,Fe,Other Min) 1 Each Tablet 1 Each PO Biotin 2,500 Mcg Capsule 5,000 Mcg PO Ketoconazole 15 Gm Cream..g. 1 Tito TP BID Fluocinonide 15 Gm Cream..g. 1 Tito TP BID Dicyclomine Hcl 10 Mg Capsule 1 Cap PO TID Voltaren (Diclofenac Sodium) 100 Gm Gel..gram. 1 Gm TP QID No Known Medications Prior To Admisstion (Info) Each 1 Each Vitals/I & O Vital Sign - Last 24 Hours 12/14/16 12/14/16 12/14/16 12/14/16 11:48 13:05 14:40 14:44 Temp 98.1 98.3 98.3 98.1 98.3 98.3 Pulse 92 80 86 86 Resp 16 16 15 15 B/P (MAP) 165/75 (105) 133/79 (97) 123/61 (81) 123/61 (81) Pulse Ox 99 99 100 100 O2 Delivery Room Air Room Air Room Air Room Air 12/14/16 12/14/16 12/14/16 12/14/16 19:00 19:52 21:16 22:57 Temp 101.3 98.6 98.1 101.3 98.6 98.1 Pulse 71 65 Resp 16 16 B/P (MAP) 109/56 (73) 104/62 (76) Pulse Ox 100 98 O2 Delivery Room Air Room Air Room Air 12/15/16 12/15/16 12/15/16 12/15/16 03:02 07:00 08:00 08:59 Temp 98.1 98.1 98.1 98.1 Pulse 66 56 56 Resp 18 18 B/P (MAP) 106/52 (70) 114/60 (78) 114/60 Pulse Ox 97 100 O2 Delivery Room Air Room Air Room Air Intake and Output 12/14/16 12/14/16 12/15/16 15:00 23:00 07:00 Intake Total 120 ml 120 ml Balance 120 ml 120 ml IVAN JUDD MD Dec 15, 2016 10:49
[2016-12-15 11:00] VITALS: BP 96/57
--- NOTE | 2016-12-15 14:12 | RAD ---
MRI of the brain without contrast 12/15/2016 Clinical History: 2 episodes of memory loss over the last 3 months with right temporal headaches. Technique: Unenhanced T1-weighted sagittal and axial, T2-weighted axial and coronal and FLAIR, gradient echo and diffusion-weighted axial images of the brain were obtained. Findings: No previous imaging studies are available for comparison. There is generalized parenchymal atrophy. Patchy and several small scattered areas of increased signal intensity are seen within the periventricular and subcortical white matter of both cerebral hemispheres on the FLAIR and T2-weighted images consistent with areas of mild small vessel ischemic disease. No acute parenchymal abnormality is seen. No extra-axial fluid collection is seen. There is no MRI evidence of acute ischemia/infarction. Mild mucosal thickening in seen scattered throughout the paranasal sinuses. Normal flow voids are seen within the major vascular structures surrounding the brain parenchyma. Impression: No acute parenchymal abnormality is seen. Electronically signed by: Sean Judd MD (12/15/2016 2:09 PM) [facility] [id number]
--- NOTE | 2016-12-15 14:29 | RAD ---
CTA of the head and neck with contrast, 2016: History: Memory loss, family history of aneurysms Multidetector CT imaging was performed following an IV bolus injection of iodinated contrast material. Multiplanar reconstructions were produced including MIP coronal and sagittal reconstructions as well as 3-D volume rendered reconstructions of the major arteries. There is only mild calcific plaquing of the aortic arch. The origins of the cervicocephalic arteries from the aortic arch are widely patent. Both common carotid arteries in the neck are widely patent. There is no significant atherosclerotic plaquing at either carotid bifurcation. The internal carotid arteries are widely patent bilaterally through the level of the [place] of [place]. The middle cerebral arteries and their major branches are unremarkable. There is a single anterior cerebral artery filling from both internal carotid circulations and supplying both frontal lobes. 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 There is no evidence of aneurysm. Both vertebral arteries in the neck are widely patent up through the basilar artery level. The basilar artery is unremarkable. The posterior cerebral arteries in the major branches show no abnormality. Incidental note is made of several small nonspecific thyroid nodules. The largest of these in the posterior aspect of the right lobe measures 12 mm. There are moderate multilevel degenerative changes in the cervical spine. IMPRESSION: 1. 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 2. No evidence of intracranial aneurysm or vascular malformation. 3. No evidence of significant carotid bifurcation disease.
[2016-12-15 15:00] VITALS: BP 110/68
--- NOTE | 2016-12-16 11:39 | PDOC3 ---
Discharge Summary* Admitting Diagnosis Problems Medical Problems: (1) Encephalopathy acute Status: Acute (2) Hypokalemia Status: Acute Problems: Final Diagnosis Brief loss of memory/ Confusion: unclear etiology suspecting transient global amnesia Hypertension: Stable, continue current regimen, Hypokalemia: Potassium has been replaced. Labs reviewed. Brief Hospital Course A 66-year-old female patient with prior history of hypertension presented to the hospital with a transient loss of memory and confusion, during hospitalization she was evaluated by neurology and her imaging studies such as CT of the head and MRI did not reveal any acute findings. She was admitted to the hospital patient had similar episodes in the past 2 years ago. Also she had family history of aneurysms. During her stay in the hospital patient did not have any symptoms such as confusion or memory loss, as per the neurology patient deemed stable enough to go home and follow up with primary care doctor and neurologist as needed basis. Discharge exam Gen. alert and oriented 3 Heart S1-S2 present Lungs anterior chest clear Abdomen soft nontender no organomegaly Extremities no edema Discharge disposition home Discharge condition stable discharged Discharge medications are reviewed on new medications started in the hospital. Total time spent for discharge is 32 minutes for patient education counseling and coordination of care. Scheduled Amlodipine Besylate (Amlodipine Besylate), 5 MG PO DAILY, (Reported) Atorvastatin Calcium (Atorvastatin Calcium), 1 TAB PO DAILY, (Reported) Diclofenac Sodium (Voltaren), 1 GM TP QID, (Reported) Dicyclomine Hcl (Dicyclomine Hcl), 1 CAP PO TID, (Reported) Fluocinonide (Fluocinonide), 1 ABHINAV TP BID, (Reported) Ketoconazole (Ketoconazole), 1 ABHINAV TP BID, (Reported) Omeprazole (Omeprazole), 1 CAP PO DAILY, (Reported) Potassium Chloride (Klor-Con M20), 1 TAB PO BID, (Reported) Triamterene/Hydrochlorothiazid (Triamterene-Hctz 37.5-25 Mg Cp), 1 CAP PO DAILY, (Reported) Miscellaneous Medications Biotin (Biotin), 5,000 MCG PO, (Reported) Calcium Carb & Cit/Vitamin D3 (Calcium + D3 Er Tablet), 1 EACH PO, (Reported) Folic Acid/Mv,Fe,Other Min (One Daily For Women Tablet), 1 EACH PO, (Reported) Info (No Known Medications Prior To Admisstion), 1 EACH MC, (Reported) Discontinued Medications Albuterol Sulfate (Ventolin Hfa Inhaler), 2 PUFF INH Q4HRS, (Reported) Atorvastatin Calcium (Atorvastatin Calcium), 1 TAB PO DAILY, (Reported) Meloxicam (Meloxicam), 1 TAB PO DAILY, (Reported) Mometasone/Formoterol (Dulera 100 Mcg/5 Mcg Inhaler), 2 PUFF IH BID, (Reported) Potassium Chloride (Klor-Con 10), 1 TAB PO DAILY, (Reported) Triamcinolone Acetonide (Triamcinolone Acetonide), 1 ABHINAV TP BID, (Reported) Time Spent Total time spent with patient 32 minutes for coordination of care, counseling, and education. SERENITY ANDERSON MD Dec 16, 2016 11:39
== END 2016-12-15 18:36 | disposition home or self-care (01) | DRG 70 ==
LOC: ER 11:48 → 6 SOUTH 12:48
PROVIDERS: ADMIT Internal Medicine; ATTEND Internal Medicine
DX: G45.4 Transient global amnesia (principal); G93.40 Encephalopathy, unspecified; E87.6 Hypokalemia; E78.5 Hyperlipidemia, unspecified; E78.00 Pure hypercholesterolemia, unspecified; I10 Essential (primary) hypertension; Z88.5 Allergy status to narcotic agent; Z88.8 Allergy status to other drugs, medicaments and biological substances; Z80.0 Family history of malignant neoplasm of digestive organs; Z82.3 Family history of stroke; Z82.49 Family history of ischemic heart disease and other diseases of the circulatory system; Z83.3 Family history of diabetes mellitus
CPT/HCPCS: 36415; 70450; 70496; 70498; 70551; 80048; 80053; 80329; 81001; 83735; 83880; 84443; 84484; 85027; 85610; 85730; 93005; 94250; 94760; 96360; C1887; G0480; G0481; J7030; Q9967; 99285-25

== ENCOUNTER → 2017-02-26 | Outpatient (CLI) | payer OTHER ==
[~2017-02-26] MED LIST changes: +AMLO5TAB2 PO; +ATOR20TA58 PO; +BIOT25006 PO; +CALC-77 PO; +FOLI1TAB35 PO; +OMEP40CA5 PO; +POTA20TA4 PO; +TRIA1CAP3 PO
--- NOTE | 2017-02-26 09:56 | KCIC ---
Clinical Indication: Osteopenia Technique: Bone Densitometry was performed with dual photon absorption of the lumbar spine and proximal left femur. Comparison is from November 12, 2011. Findings: Lumbar Spine: Bone density is 0.965 g/cm2 for L1-L4. T-Score is -0.7 and Z-score 1.3. Age-matched percentage is 117 %. Bone mineral density has decreased by 5.2%. Left Femur Total: Bone density is 0.909 g/cm2. T-Score is -0.3 and Z-score 1.2. Age-matched percentage is 119%. Bone marrow density has decreased by 5.8%. Impression: 1. Normal bone mineral density in the lumbar spine and left femur. Bone marrow density has decreased since prior exam. Electronically signed by: Clemente Pena MD (02/26/2017 9:53 AM) [id number]
== END | disposition home or self-care (01) ==
LOC: KCIC DEXA 08:58
PROVIDERS: ATTEND Specialist
DX: M85.80 Other specified disorders of bone density and structure, unspecified site (principal); M81.0 Age-related osteoporosis without current pathological fracture
CPT/HCPCS: 77080

== ENCOUNTER → 2017-11-20 | Outpatient (CLI) | payer OTHER | END | disposition home or self-care (01) | LOC: KCIC MAMMO 12:59 | DX: Z12.31 Encounter for screening mammogram for malignant neoplasm of breast (principal) | CPT/HCPCS: 77063; 77067 ==

== ENCOUNTER → 2017-11-25 | Outpatient (CLI) | payer OTHER | END | disposition home or self-care (01) | LOC: KCIC US 13:12 | DX: R92.8 Other abnormal and inconclusive findings on diagnostic imaging of breast (principal) | CPT/HCPCS: 76641 ==

== ENCOUNTER → 2018-02-25 | Outpatient (CLI) | payer OTHER ==
[~2018-02-25] MED LIST changes: -AMLO5TAB2 PO; +AMLO5TAB7 PO; +POTA10TA12 PO; -POTA10TA5 PO
--- NOTE | 2018-02-25 11:12 | KCIC ---
EXAM: Abdomen sonogram complete; pelvic sonogram. HISTORY: Pain. TECHNIQUE: Sonographic imaging of the abdomen was performed. Transabdominal and translabial sonographic imaging of the pelvis was performed. COMPARISON: CT dated 09/10/2016. FINDINGS: Abdomen: The liver is normal in size. There are hepatic cysts with suspected internal septation measuring 2.8 cm and 2.0 cm. No solid hepatic lesion is seen. The gallbladder is unremarkable. The common bile duct is normal in caliber. The kidneys are normal in size. The spleen, pancreas, aorta and inferior vena cava are partially obscured due to bowel gas. There is mild bilateral pelviectasis or there are extrarenal pelves. Pelvis: The uterus and ovaries are surgically absent. There is a rounded masslike structure within the midline pelvis posterior to the bladder measuring 6.4 cm. This may be a prominent stool-filled rectum. There is no free fluid. IMPRESSION: 1. Suspected bilateral pelviectasis or extrarenal pelves. 2. Complicated hepatic cysts with internal septation, the largest of which measures 2.8 cm. 3. Masslike structure within the midline pelvis posterior to the urinary bladder. This may be due to a prominent stool-filled rectum. The possibility of a rectal mass or alternative neoplasm is not excluded sonographically. Cross-sectional imaging may be useful for characterization if not recently performed. Electronically signed by: Ngoc Morton MD (02/25/2018 11:09 AM) [id number]
== END | disposition home or self-care (01) ==
LOC: KCIC US 08:53
PROVIDERS: ATTEND Nurse Practitioner
DX: K76.89 Other specified diseases of liver (principal); R63.4 Abnormal weight loss
CPT/HCPCS: 76700; 76830; 76856

== ENCOUNTER → 2018-06-02 | Outpatient (CLI) | payer OTHER ==
--- NOTE | 2018-06-02 11:46 | KCIC ---
Left breast diagnostic digital mammograms with 3-D tomosynthesis: Reason for examination: Follow-up nodules. Comparison is made to previous study dated 11/20/2017. Left breast mammograms in CC and oblique projections were obtained with 2-D imaging and 3-D tomosynthesis imaging on a Siemens Inspiration unit and reviewed on the workstation. Interpretation was made with the benefit of CAD. The skin and nipple show no abnormalities. No abnormal axillary lymph nodes are seen. The breast parenchyma shows scattered fatty and fibroglandular density. (Breast density: Category B.) There continue to be a small parenchymal density seen best on kayden A graphic images in the lateral left breast. Ultrasound to follow. There are no new dominant masses, suspicious calcifications or architectural distortion. Benign calcifications are present. Impression: No definite change in the small nodular parenchymal densities in the lateral left breast. Ultrasound to follow. BI-RAD Category 0: Incomplete. Needs additional imaging evaluation. Left breast ultrasound: Comparison is made to previous study dated 11/25/2017. Left whole breast ultrasound including evaluation of all 4 quadrants and the retroareolar and axillary regions of the left breast was performed. There are small fibrocystic lesions at the 2:00 position 5.5 cm from the nipple and at the 4:00 position 5 cm from the nipple which show no significant change. There is some ductal ectasia in the 9:00 position. No new solid or suspicious-appearing nodules are seen. No abnormal appearing lymph nodes are seen in the left axilla. IMPRESSION: Continued presence of benign-appearing fibrocystic changes at the 2:00 and 4:00 positions. No suspicious abnormality seen. Recommend routine mammographic follow-up. BI-RADS Category 2: Benign. "Our facility is accredited by the [employer] [place] Mammography Program." This patient's information has been entered into a reminder system for the patient to be notified with the results of her examination and a target date for the next mammogram. Electronically signed by: Mikaela Junior MD (06/02/2018 11:42 AM) [id number]
== END | disposition home or self-care (01) ==
LOC: KCIC MAMMO 10:03
PROVIDERS: ATTEND Specialist
DX: N63.21 Unspecified lump in the left breast, upper outer quadrant (principal); N63.23 Unspecified lump in the left breast, lower outer quadrant
CPT/HCPCS: 76641; 77065; G0279; 77061

== ENCOUNTER → 2018-07-06 | Outpatient (CLI) | payer OTHER ==
[~2018-07-06] MED LIST changes: +AMLO5TAB10 PO; -AMLO5TAB7 PO
--- NOTE | 2018-07-06 11:44 | CARD ---
MR#: [id number] Date of Study: 07/06/2018 Ordering Physician: ASIF BHARDWAJ, Referring Physician: ASIF BHARDWAJ Tech: Amira Sharpe RDCS APPROVED REPORT EXAM: Two-dimensional and M-mode echocardiogram with Doppler and color Doppler. Other Information Quality : GoodHR: 58bpm Rhythm : NSR INDICATION Chest Pain 2D DIMENSIONS RVDd2.8 (2.9-3.5cm)Left Atrium(2D)3.3 (1.6-4.0cm) IVSd1.0 (0.7-1.1cm)Aortic Root(2D)2.9 (2.0-3.7cm) LVDd3.6 (3.9-5.9cm)LVOT Diameter1.7 (1.8-2.4cm) PWd0.8 (0.7-1.1cm)LVDs2.2 (2.5-4.0cm) FS (%) 38.5 %SV38.8 ml LVEF(%)69.7 (>50%) M-Mode DIMENSIONS Left Atrium(MM)2.82 (2.5-4.0cm)Aortic Root2.68 (2.2-3.7cm) Aortic Valve AoV Peak Bruce.125.8cm/sAoV VTI30.5cm AO Peak GR.6.3mmHgLVOT Peak Bruce.107.9cm/s AO Mean GR.3mmHgAVA (VMAX)2.01cm2 SYDNEY (VTI)2.00cm2 Mitral Valve MV E Mxdmzwth96.4cm/sMV DECEL IGWX780tz MV A Gqgobbnc78.9cm/sE/A Ratio0.7 MV A Phwgfhgi393vr Pulmonary Valve PV Peak Ijdwyxyz21.9cm/s Tricuspid Valve TR P. Hblfdywd862ls/sRAP ZWNTNBVB6cdMy TR Peak Gr.10tyCbUZPL20tzCi Pulmonary Vein S1 Lxhrkqxg47.5cm/sD2 Vgcrfvjv14.3cm/s PVa vdgwvipg989atcx LEFT VENTRICLE The left ventricle cavity is small. There is normal left ventricular wall thickness. The left ventric ular systolic function is normal. The Ejection Fraction is 60-65%. There is normal LV segmental wall motion. Transmitral Doppler flow pattern is Grade I-abnormal relaxation pattern. RIGHT VENTRICLE The right ventricle is normal size. There is normal right ventricular wall thickness. The right ventr icular systolic function is normal. ATRIA The left atrium size is normal. The right atrium size is normal. The interatrial septum is intact wit h no evidence for an atrial septal defect or patent foramen ovale as noted on 2-D or Doppler imaging. AORTIC VALVE The aortic valve is normal in structure and function. The aortic valve is trileaflet. Doppler and Col or Flow revealed no significant aortic regurgitation. There is no significant aortic valvular stenosi s. MITRAL VALVE The mitral valve is normal in structure and function. There is no evidence of mitral valve prolapse. There is no mitral valve stenosis. Doppler and Color-flow revealed trace mitral regurgitation. TRICUSPID VALVE The tricuspid valve is normal in structure and function. Doppler and Color Flow revealed trace tricus pid regurgitation. The PA pressure was estimated at 23 mmHg. There is no tricuspid valve prolapse or vegetation. There is no tricuspid valve stenosis. PULMONIC VALVE Pulmonic valve not well visualized. GREAT VESSELS The aortic root is normal in size. The ascending aorta is normal in size. The IVC is normal in size a nd collapses >50% with inspiration. PERICARDIAL EFFUSION There is no evidence of significant pericardial effusion. Critical Notification Critical Value: No <Conclusion> The left ventricular systolic function is normal. The Ejection Fraction is 60-65%. There is normal LV segmental wall motion. Transmitral Doppler flow pattern is Grade I-abnormal relaxation pattern. Trace mitral regurgitation. Trace tricuspid regurgitation. The PA pressure was estimated at 23 mmHg. There is no evidence of significant pericardial effusion. Signed by : Asif Bhardwaj, Electronically Approved : 07/06/2018 11:41:59
--- NOTE | 2018-07-06 13:38 | RAD ---
MR#: [id number] Date of Study: 07/06/2018 Ordering Physician: ASIF BIRMINGHAM Referring Physician: SHAILESH KELLY Tech: RT Fei Antony) (N) APPROVED REPORT Test Type: Exercise Stress Nurse/Tech: Portia MILLS Test Indications: CP, Irregular Heart Beat Cardiac History: HTN, See EMR Medications: See EMR Medical History: See EMR Resting ECG: SR Resting Heart Rate: 67 bpm Resting Blood Pressure: 138/72mmHg Pretest Chest Pain: No chest pain Nurse/Tech Notes Lungs CTA, Heart tones regular Consent: The procedure was explained to the patient in lay terms. Informed consent was witnessed. Oumar eout was entered into [employer]. History and Stress Test performed by RT Kain (Leon) (N) Stress Symptoms No chest pain or symptoms. POST EXERCISE Reason for Termination: Reached target heart rate Target HR: Yes Max HR: 149 bpm 117% of Maximum Predicted HR: 127 bpm Exercise duration: 7:50 min:sec, 3 Stage Exercise capacity: 10.0METs Max Blood Pressure: 159/64mmHg Blood Pressure response to exercise: Normal blood pressure response during stress. Chest Pain: No. Arrhythmia: No. ST Change: No. INTERPRETATION Stress EKG Conclusion: Baseline EKG showed sinus rhythm. No ischemic changes at peak stress. No arr hythmias. Imaging Protocol IMAGE PROTOCOL: Rest Tc-99m/stress Tc-99m 1 day Rest: Stress: Viability: Radiopharm.Tc99m KfcymcuxzWj12q Sestamibi Gxtg19aZr 32mCi Duration 13min. 13min. Img Date 07/06/2018 07/06/2018 Inj-Img Dizx52qgj. 60min. Rest Admin Site:IV - Right AntecubitalAdministrator:RT Fei Antony)(N) Stress Admin Site: IV - Right AntecubitalAdministrator: RT Fei Finnegan)(N) STRESS DATA End Diast. Vol.34.0mlLVEDV index BSA21.0ml End Syst. Vol.6.0mlLVESV index BSA4.0ml Myocardial Mass72.0gEject. Jzmepjgu34.0% Stress Scores Regional WT0.00Summed WT2.00 Regional WM0.00Summed WM6.00 Study quality was good. Left Ventricular size was Normal at Rest and Stress. Lung uptake was . Left Ventricular ejection fraction is 82%. The rest and stress images show normal perfusion, normal contraction and thickening. LV Perf. Quant 17 Seg. SSS0.00 17 Seg. SRS0.00 17 Seg. SDS0.00 Stress Defect Extent (% LAD)0.00Rest Defect Extent (% LAD)0.00Rev. Defect Extent (% LAD)0.00 Stress Defect Extent (% LCX) 0.00Rest Defect Extent (% LCX)0.00Rev. Defect Extent (% LCX)0.00 Stress Defect Extent (% RCA)0.00Rest Defect Extent (% RCA)0.00Rev. Defect Extent (% RCA)0.00 Stress Defect Extent (% KVNG)0.00Rest Defect Extent (% KVNG)0.00Rev. Defect Extent (% KVNG)0.00 Conclusion 1. Treadmill exercise cardioisotope stress test did not show any evidence of ischemia or infarct. 2. Normal left ventricular systolic function with ejection fraction calculated at 82%. 3. Low risk for cardiac events. Signed by : Asif [place], Electronically Approved : 07/06/2018 13:36:26
== END | disposition home or self-care (01) ==
LOC: NM 09:07
PROVIDERS: ATTEND Internal Medicine Cardiovascular Disease
DX: R00.8 Other abnormalities of heart beat (principal); I10 Essential (primary) hypertension; I49.9 Cardiac arrhythmia, unspecified
CPT/HCPCS: 78452; 93017; 93306; 96374; 96376; A9500

== ENCOUNTER → 2018-10-20 | Outpatient (CLI) | payer OTHER ==
--- NOTE | 2018-10-20 12:54 | KCIC ---
Bone mineral density study dated 10/20/2018. Indication: Postmenopausal screening. Findings: Lower lumbar spine: BMD (g/cm2): Total L1-L4.......... 0.914. . T-Score: Total L1-L4.................... -1.2. Z-Score: Total L1-L4 ................... 0.9. Left Hip: BMD (g/cm2): Total .......... 0.902. . T-Score: Total .................... -0.3. Z-Score: Total ................... 1.2. World Health Organization criteria for BMD interpretation classify patients as Normal (T-score at or above -1.0), Osteopenic (T-score between -1.0 and -2.5), or Osteoporotic (T-score at or below -2.5). Impression: According to the World Health Organization, bone mineral density values within the lower lumbar spine are within the range of osteopenia. The values of the left femoral neck are within the range of normal. Electronically signed by: Julian Gordon MD (10/20/2018 12:51 PM) [facility]
== END | disposition home or self-care (01) ==
LOC: KCIC DEXA 11:00
PROVIDERS: ATTEND Family Medicine
DX: Z13.820 Encounter for screening for osteoporosis (principal); Z78.0 Asymptomatic menopausal state
CPT/HCPCS: 77080

== ENCOUNTER → 2018-11-19 | Outpatient (CLI) | payer OTHER ==
--- NOTE | 2018-11-19 17:14 | KCIC ---
BILATERAL SCREENING MAMMOGRAM, 3-D History: Routine screening. Comparison: Bilateral mammogram November 20, 2017 and dating back to 2014. Technique: MLO and CC digital tomosynthesis (3D) images obtained. Radiologist reviewed these images on dedicated workstation. Findings: Breast Tissue Density B : There are scattered areas of fibroglandular density. Bilateral glandular nodularity is redemonstrated on the tomosynthesis images. There are stable benign calcifications in the upper outer left breast. There are no dominant masses, suspicious microcalcifications, or architectural distortion. IMPRESSION: No mammographic evidence of malignancy. Recommend routine screening. BI-RADS category 2: Benign findings. The images were reviewed with computer-aided detection. Patient information is entered into reminder system with a target due date for the next screening mammogram. Mammography is the most sensitive method for finding small breast cancers, but it does not detect them all and is not a substitute for careful clinical examination. A negative mammogram does not negate a clinically suspicious finding and should not result in delay in biopsying a clinically suspicious abnormality. "Our facility is accredited by the [employer] Mammography Program." Electronically signed by: Toan Bass MD (11/19/2018 5:11 PM) [facility]
== END | disposition home or self-care (01) ==
LOC: KCIC MAMMO 13:08
PROVIDERS: ATTEND Specialist
DX: Z12.31 Encounter for screening mammogram for malignant neoplasm of breast (principal); N64.89 Other specified disorders of breast
CPT/HCPCS: 77063; 77067

== ENCOUNTER 2019-02-23 10:53 | Emergency (ER) | payer OTHER ==
[~2019-02-23] VITALS: Ht 160 cm; Wt 56.0 kg
--- NOTE | 2019-02-23 13:12 | RAD ---
CT HEAD WO CONTRAST History: Headache Comparison: December 14, 2016 Technique: Noncontrast CT imaging was performed of the head. Exposure: One or more of the following individualized dose reduction techniques were utilized for this examination: 1. Automated exposure control 2. Adjustment of the mA and/or kV according to patient size 3. Use of iterative reconstruction technique. Findings: No acute extra-axial or parenchymal hemorrhage is identified. There is no significant intra-axial mass effect, midline shift, or extra-axial fluid collection. The snell-white differentiation of the major vascular territories is preserved. The ventricles, sulci, and cisterns are stable in size and configuration. The mastoid air cells and the visualized paranasal sinuses are aerated. No acute calvarial abnormality is identified. Impression: 1. No acute intracranial abnormality is identified. Electronically signed by: Romeo Huang MD (02/23/2019 1:08 PM) [facility]
[2019-02-23 13:14] LABS: BILIRUBIN,URINE NEGATIVE (NEG); CLARITY,URINE CLEAR; COLOR,URINE YELLOW; NITRITE,URINE NEGATIVE (NEG); PH,URINE 7.5; PROTEIN,URINE NEGATIVE (NEG-TRACE); UROBILINOGEN,URINE 0.2 mg/dL (0.2 mg/dL)
[2019-02-23 13:22] LABS: SQUAMOUS EPITHELIAL CELL,UR FEW /LPF
[2019-02-23 13:23] LABS: BACTERIA,URINE 0 /HPF (0-FEW); BARBITURATES NEG (NEG); BENZODIAZEPINES NEG (NEG); CANNABINOIDS NEG (NEG); COCAINE NEG (NEG); METHADONE NEG (NEG); OPIATES NEG (NEG); PHENCYCLIDINE NEG (NEG); RBC,URINE 0 /HPF (0-2); WBC,URINE 0 /HPF (0-4)
[2019-02-23 13:24] LABS: AMPHETAMINE/METHAMPHETAMINE NEG (NEG)
[2019-02-23 13:33] LABS: BASO % 1 % (0-3); EOS # 0.1 x10^3/uL (0.0-0.7); EOS % 3 % (0-3); HEMATOCRIT 48.1 % (36.0-47.0); HEMOGLOBIN 16.4 g/dL (12.0-15.5); LYMPH # 1.4 x10^3/uL (1.0-4.8); LYMPH % 32 % (24-48); MEAN CORPUSCULAR HEMOGLOBIN 32 pg (25-35); MEAN CORPUSCULAR HGB CONC 34 g/dL (31-37); MEAN CORPUSCULAR VOLUME 94 fL (79-100); MONO # 0.5 x10^3/uL (0.0-1.1); MONO % 11 % (0-9); NEUT # 2.5 x10^3/uL (1.8-7.7); NEUT % 54 % (31-73); PLATELET COUNT 325 x10^3/uL (140-400); RED BLOOD COUNT 5.14 x10^6/uL (3.50-5.40); RED CELL DISTRIBUTION WIDTH 15.2 % (11.5-14.5); WHITE BLOOD COUNT 4.6 x10^3/uL (4.0-11.0)
[2019-02-23 13:43] LABS: PROTHROMBIN TIME PATIENT 12.7 SEC (11.7-14.0)
[2019-02-23 13:50] LABS: CALCIUM 10.3 mg/dL (8.5-10.1); CREATININE 1.1 mg/dL (0.6-1.0); GFR 59.4; POTASSIUM 3.8 mmol/L (3.5-5.1)
[2019-02-23 13:56] LABS: ALBUMIN 4.1 g/dL (3.4-5.0); ALBUMIN/GLOBULIN RATIO 0.9 (1.0-1.7); MAGNESIUM 2.2 mg/dL (1.8-2.4); TOTAL BILIRUBIN 0.3 mg/dL (0.2-1.0); TOTAL PROTEIN 8.8 g/dL (6.4-8.2)
[2019-02-23 14:42] VITALS: BP 111/57
--- NOTE | 2019-02-23 15:10 | PHYS DOC ---
Past Medical History Past Medical History: GERD, Glaucoma, High Cholesterol, Hypertension, Other Additional Past Medical Histor: transient global amnesia, cardiac arrhythmia, cardiac murmur, cataract Past Surgical History: Hysterectomy Alcohol Use: None Drug Use: None Adult General Chief Complaint Chief Complaint: EYE PROBLEMS HPI HPI Patient is a 68 year old female with history of hypertension, prediabetes, high cholesterol, acid reflex, who presents to the ED today with multiple complaints. Patient states the right upper eyelid has been twitching intermittently for 2 weeks. She states she read he saw the manager rn who did not think much of it. She states she's also had right upper lip twitching that occurred last night for a few seconds, she states she'll occasionally gets a headache. She describes the headache as stabbing, unable to rate it. She states right now she has no he adache. Denies any chest pain, shortness of breath. Review of Systems Review of Systems Constitutional: Denies fever or chills [] Eyes: Denies change in visual acuity, redness, or eye pain [] HENT: Reports right upper eyelid twitching. Denies nasal congestion or sore throat [] Respiratory: Denies cough or shortness of breath [] Cardiovascular: No additional information not addressed in HPI [] GI: Denies abdominal pain, nausea, vomiting, bloody stools or diarrhea [] : Denies dysuria or hematuria [] Musculoskeletal: Denies back pain or joint pain [] Integument: Denies rash or skin lesions [] Neurologic: Reports headache, denies focal weakness or sensory changes [] All other systems were reviewed and found to be within normal limits, except as documented in this note. Allergies Allergies Allergies Coded Allergies Type Severity Reaction Last Updated Verified doxycycline Allergy Intermediate 12/14/16 Yes morphine Allergy Unknown severe vomiting 05/30/14 Yes Physical Exam Physical Exam Constitutional: Well developed, well nourished, no acute distress, non-toxic appearance. [] HENT: Normocephalic, atraumatic, bilateral external ears normal, oropharynx moist, no oral exudates, nose normal. [] Eyes: PERRLA, EOMI, conjunctiva normal, no discharge. [] Neck: Normal range of motion, no tenderness, supple, no stridor. [] Cardiovascular:Heart rate regular rhythm, no murmur [] Lungs & Thorax: Bilateral breath sounds clear to auscultation [] Abdomen: Bowel sounds normal, soft, no tenderness, no masses, no pulsatile masses. [] Skin: Warm, dry, no erythema, no rash. [] Back: No tenderness, no CVA tenderness. [] Extremities: No tenderness, no cyanosis, no clubbing, ROM intact, no edema. [] Neurologic: Alert and oriented X 3, normal motor function, normal sensory function, no focal deficits noted. Cranial nerves II-XII intact Psychologic: Affect normal, judgement normal, mood normal. [] Current Patient Data Vital Signs Vital Signs Date Time Temp Pulse Resp B/P (MAP) Pulse Ox O2 Delivery O2 Flow Rate FiO2 02/23/19 14:42 56 16 111/57 (75) 99 Room Air 02/23/19 12:19 98.3 98.3 Lab Values Laboratory Tests Test 02/23/19 12:54 02/23/19 13:18 Urine Collection Type Unknown Urine Color Yellow Urine Clarity Clear Urine pH 7.5 Urine Specific Malone 1.010 Urine Protein Negative mg/dL (NEG-TRACE) Urine Glucose (UA) Negative mg/dL (NEG) Urine Ketones (Stick) Negative mg/dL (NEG) Urine Blood Negative (NEG) Urine Nitrite Negative (NEG) Urine Bilirubin Negative (NEG) Urine Urobilinogen Dipstick 0.2 mg/dL (0.2 mg/dL) Urine Leukocyte Esterase Negative (NEG) Urine RBC 0 /HPF (0-2) Urine WBC 0 /HPF (0-4) Urine Squamous Epithelial Cells Few /LPF Urine Bacteria 0 /HPF (0-FEW) Urine Opiates Screen Neg (NEG) Urine Methadone Screen Neg (NEG) Urine Barbiturates Neg (NEG) Urine Phencyclidine Screen Neg (NEG) Urine Amphetamine/Methamphetamine Neg (NEG) Urine Benzodiazepines Screen Neg (NEG) Urine Cocaine Screen Neg (NEG) Urine Cannabinoids Screen Neg (NEG) Urine Ethyl Alcohol Neg (NEG) White Blood Count 4.6 x10^3/uL (4.0-11.0) Red Blood Count 5.14 x10^6/uL (3.50-5.40) Hemoglobin 16.4 g/dL (12.0-15.5) H Hematocrit 48.1 % (36.0-47.0) H Mean Corpuscular Volume 94 fL (79-100) Mean Corpuscular Hemoglobin 32 pg (25-35) Mean Corpuscular Hemoglobin Concent 34 g/dL (31-37) Red Cell Distribution Width 15.2 % (11.5-14.5) H Platelet Count 325 x10^3/uL (140-400) Neutrophils (%) (Auto) 54 % (31-73) Lymphocytes (%) (Auto) 32 % (24-48) Monocytes (%) (Auto) 11 % (0-9) H Eosinophils (%) (Auto) 3 % (0-3) Basophils (%) (Auto) 1 % (0-3) Neutrophils # (Auto) 2.5 x10^3/uL (1.8-7.7) Lymphocytes # (Auto) 1.4 x10^3/uL (1.0-4.8) Monocytes # (Auto) 0.5 x10^3/uL (0.0-1.1) Eosinophils # (Auto) 0.1 x10^3/uL (0.0-0.7) Basophils # (Auto) 0.0 x10^3/uL (0.0-0.2) Prothrombin Time 12.7 SEC (11.7-14.0) Prothrombin Time INR 1.0 (0.8-1.1) Sodium Level 144 mmol/L (136-145) Potassium Level 3.8 mmol/L (3.5-5.1) Chloride Level 107 mmol/L (98-107) Carbon Dioxide Level 29 mmol/L (21-32) Anion Gap 8 (6-14) Blood Urea Nitrogen 16 mg/dL (7-20) Creatinine 1.1 mg/dL (0.6-1.0) H Estimated GFR (Cockcroft-Gault) 59.4 BUN/Creatinine Ratio 15 (6-20) Glucose Level 92 mg/dL (70-99) Calcium Level 10.3 mg/dL (8.5-10.1) H Magnesium Level 2.2 mg/dL (1.8-2.4) Total Bilirubin 0.3 mg/dL (0.2-1.0) Aspartate Amino Transferase (AST) 27 U/L (15-37) Alanine Aminotransferase (ALT) 39 U/L (14-59) Alkaline Phosphatase 127 U/L (46-116) H Creatine Kinase 196 U/L (26-192) H Creatine Kinase MB (Mass) 2.1 ng/mL (0.0-3.6) Creatine Kinase MB Relative Index 1.1 % (0-4) Troponin I Quantitative < 0.017 ng/mL (0.000-0.055) JP-Ieg-Z-Type Natriuretic Peptide 83 pg/mL (0-124) Total Protein 8.8 g/dL (6.4-8.2) H Albumin 4.1 g/dL (3.4-5.0) Albumin/Globulin Ratio 0.9 (1.0-1.7) L Thyroid Stimulating Hormone (TSH) 0.773 uIU/mL (0.358-3.74) Laboratory Tests 02/23/19 13:18 Laboratory Tests 02/23/19 13:18 EKG EKG [address] Munoz sinus rhythm HR 53 no STEMI[] Radiology/Procedures Radiology/Procedures []PROCEDURE: CT HEAD WO CONTRAST CT HEAD WO CONTRAST History: Headache Comparison: December 14, 2016 Technique: Noncontrast CT imaging was performed of the head. Exposure: One or more of the following individualized dose reduction techniques were utilized for this examination: 1. Automated exposure control 2. Adjustment of the mA and/or kV according to patient size 3. Use of iterative reconstruction technique. Findings: No acute extra-axial or parenchymal hemorrhage is identified. There is no significant intra-axial mass effect, midline shift, or extra-axial fluid collection. The snell-white differentiation of the major vascular territories is preserved. The ventricles, sulci, and cisterns are stable in size and configuration. The mastoid air cells and the visualized paranasal sinuses are aerated. No acute calvarial abnormality is identified. Impression: 1. No acute intracranial abnormality is identified. Electronically signed by: Rosanne Pittman MD (02/23/2019 1:08 PM) [facility] DICTATED and SIGNED BY: ROSANNE PITTMAN MD DATE: 02/23/19 8802 Course & Med Decision Making Course & Med Decision Making Pertinent Labs and Imaging studies reviewed. (See chart for details) This is a 5-year-old female patient with complaints of right eye twitching for 2 weeks, also complaining of right upper lip twitching that she noted yesterday and a headache. Patient has been evaluated by her manager rn for the eye twitching. She was concerned about stroke. Labs were done including CAT scan, no acute findings were noted. Stroke scale is 0. Patient was discharged to home. Provided follow-up information. Dragon Disclaimer Dragon Disclaimer This electronic medical record was generated, in whole or in part, using a voice recognition dictation system. Departure Departure Impression: Primary Impression: Headache Additional Impression: Eye muscle twitches Referrals: CT JIMENEZ MD (PCP) Patient Instructions: Headache, FAQs Additional Instructions: You were evaluated in the emergency room, we could not find acute source for your symptoms. Your blood glucose was 92. Follow-up with your doctor as soon as you can. NIHSS Stroke Scale NIH Stroke Scale: NIH Stroke Scale Response (Comments) Value Level of Consciousness: 0 Alert/Responsive 0 LOC Questions: 0 Answers both correctly 0 LOC Commands: 0 Performs both tasks 0 Best Gaze: 0 Normal 0 Visual: 0 No visual loss 0 Facial Palsy: 0 Normal, symmetrical 0 Motor - Left Arm 0 No drift 0 Motor - Right Arm 0 No drift 0 Motor - Left Leg 0 No drift 0 Motor: Right Leg 0 No drift 0 Limb Ataxia: 0 Absent 0 Sensory: 0 No loss 0 Best Language: 0 Normal 0 Dysathria: 0 Normal 0 Extinction and Inattention: 0 Normal 0 Total 0 Problem Qualifiers Primary Impression: Headache Headache type: unspecified Headache chronicity pattern: unspecified pattern Intractability: not intractable Qualified Codes: R51 - Headache TEOIRINEO NEWBERRY TIFFANIE Feb 23, 2019 15:10
--- NOTE | 2019-02-23 16:25 | EKG ---
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
== END 2019-02-23 15:35 | disposition home or self-care (01) ==
LOC: ER 10:53
DX: G24.5 Blepharospasm (principal); R51 Headache; I10 Essential (primary) hypertension; E78.00 Pure hypercholesterolemia, unspecified; K21.9 Gastro-esophageal reflux disease without esophagitis; Z88.5 Allergy status to narcotic agent; Z88.1 Allergy status to other antibiotic agents
CPT/HCPCS: 36415; 70450; 80053; 80307; 81001; 82553; 83735; 83880; 84443; 84484; 85025; 85610; 93005; 99285-25

== ENCOUNTER 2019-03-25 10:29 | Emergency (ER) | payer OTHER ==
[~2019-03-25] VITALS: Ht 160 cm; Wt 56.7 kg
[~2019-03-25 10:29] MED LIST changes: +OMEP40CA45 PO; -OMEP40CA5 PO
--- NOTE | 2019-03-25 11:07 | RAD ---
PORTABLE CHEST 1V INDICATION: Palpitations. COMPARISON STUDY: 11/30/2010. FINDINGS: Lungs: Normal lung volume. No pulmonary mass or consolidation. The tracheobronchial tree and hilar structures are normal. Pleura: No pleural effusion or pneumothorax. Heart and Mediastinum: Cardiomegaly. Atherosclerotic thoracic aorta. IMPRESSION: No acute cardiopulmonary process. Electronically signed by: Romeo Womack MD (03/25/2019 11:04 AM) [facility]
[2019-03-25 11:47] LABS: BASO % 1 % (0-3); EOS # 0.1 x10^3/uL (0.0-0.7); EOS % 1 % (0-3); HEMATOCRIT 47.4 % (36.0-47.0); HEMOGLOBIN 15.9 g/dL (12.0-15.5); LYMPH # 1.4 x10^3/uL (1.0-4.8); LYMPH % 31 % (24-48); MEAN CORPUSCULAR HEMOGLOBIN 32 pg (25-35); MEAN CORPUSCULAR HGB CONC 34 g/dL (31-37); MEAN CORPUSCULAR VOLUME 94 fL (79-100); MONO # 0.5 x10^3/uL (0.0-1.1); MONO % 12 % (0-9); NEUT # 2.4 x10^3/uL (1.8-7.7); NEUT % 55 % (31-73); PLATELET COUNT 319 x10^3/uL (140-400); RED BLOOD COUNT 5.03 x10^6/uL (3.50-5.40); RED CELL DISTRIBUTION WIDTH 15.2 % (11.5-14.5); WHITE BLOOD COUNT 4.4 x10^3/uL (4.0-11.0)
[2019-03-25 11:50] LABS: CALCIUM 9.7 mg/dL (8.5-10.1); CREATININE 1.1 mg/dL (0.6-1.0); GFR 59.2; POTASSIUM 3.8 mmol/L (3.5-5.1)
[2019-03-25 11:54] LABS: MAGNESIUM 2.1 mg/dL (1.8-2.4); TOTAL BILIRUBIN 0.3 mg/dL (0.2-1.0)
[2019-03-25 11:57] LABS: PROTHROMBIN TIME PATIENT 13.1 SEC (11.7-14.0)
[2019-03-25 12:07] VITALS: BP 122/67
--- NOTE | 2019-03-25 12:28 | PHYS DOC ---
Past Medical History Past Medical History: GERD, Glaucoma, High Cholesterol, Hypertension, Other Additional Past Medical Histor: transient global amnesia, cardiac arrhythmia, cardiac murmur, cataract Past Surgical History: Hysterectomy Alcohol Use: None Drug Use: None Adult General Chief Complaint Chief Complaint: Palpitations [facility] HPI Patient is a 69 year old female who presents with complaining of palpitation. Patient complaining of episodes of skipping heartbeat or fast heartbeat for the last 2 weeks and he states yesterday she felt shortness of breath and weakness without dizziness and chest pain with walking that is unusual for her. 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 Patient denies using drugs and much caffeine. Review of Systems Review of Systems Constitutional: Denies fever or chills [] Eyes: Denies change in visual acuity, redness, or eye pain [] HENT: Denies nasal congestion or sore throat [] Respiratory: Denies cough or shortness of breath [] Cardiovascular: No additional information not addressed in HPI [] GI: Denies abdominal pain, nausea, vomiting, bloody stools or diarrhea [] : Denies dysuria or hematuria [] Musculoskeletal: Denies back pain or joint pain [] Integument: Denies rash or skin lesions [] Neurologic: Denies headache, focal weakness or sensory changes [] Endocrine: Denies polyuria or polydipsia [] All other systems were reviewed and found to be within normal limits, except as documented in this note. Allergies Allergies Allergies Coded Allergies Type Severity Reaction Last Updated Verified doxycycline Allergy Intermediate 12/14/16 Yes morphine Allergy Unknown severe vomiting 05/30/14 Yes Physical Exam Physical Exam Constitutional: Well developed, well nourished, no acute distress, non-toxic appearance. [] HENT: Normocephalic, atraumatic, bilateral external ears normal, oropharynx moist, no oral exudates, nose normal. [] Eyes: PERRLA, EOMI, conjunctiva normal, no discharge. [] Neck: Normal range of motion, no tenderness, supple, no stridor. [] Cardiovascular:Heart rate regular rhythm, no murmur [] Lungs & Thorax: Bilateral breath sounds clear to auscultation [] Abdomen: Bowel sounds normal, soft, no tenderness, no masses, no pulsatile masses. [] Skin: Warm, dry, no erythema, no rash. [] Back: No tenderness, no CVA tenderness. [] Extremities: No tenderness, no cyanosis, no clubbing, ROM intact, no edema. [] Neurologic: Alert and oriented X 3, normal motor function, normal sensory function, no focal deficits noted. [] Psychologic: Affect normal, judgement normal, mood normal. [] Current Patient Data Vital Signs Vital Signs Date Time Temp Pulse Resp B/P (MAP) Pulse Ox O2 Delivery O2 Flow Rate FiO2 03/25/19 12:07 54 20 122/67 (85) 98 Room Air 03/25/19 10:35 98.0 98.0 Lab Values Laboratory Tests Test 03/25/19 11:30 White Blood Count 4.4 x10^3/uL (4.0-11.0) Red Blood Count 5.03 x10^6/uL (3.50-5.40) Hemoglobin 15.9 g/dL (12.0-15.5) H Hematocrit 47.4 % (36.0-47.0) H Mean Corpuscular Volume 94 fL (79-100) Mean Corpuscular Hemoglobin 32 pg (25-35) Mean Corpuscular Hemoglobin Concent 34 g/dL (31-37) Red Cell Distribution Width 15.2 % (11.5-14.5) H Platelet Count 319 x10^3/uL (140-400) Neutrophils (%) (Auto) 55 % (31-73) Lymphocytes (%) (Auto) 31 % (24-48) Monocytes (%) (Auto) 12 % (0-9) H Eosinophils (%) (Auto) 1 % (0-3) Basophils (%) (Auto) 1 % (0-3) Neutrophils # (Auto) 2.4 x10^3/uL (1.8-7.7) Lymphocytes # (Auto) 1.4 x10^3/uL (1.0-4.8) Monocytes # (Auto) 0.5 x10^3/uL (0.0-1.1) Eosinophils # (Auto) 0.1 x10^3/uL (0.0-0.7) Basophils # (Auto) 0.0 x10^3/uL (0.0-0.2) Prothrombin Time 13.1 SEC (11.7-14.0) Prothrombin Time INR 1.0 (0.8-1.1) Sodium Level 139 mmol/L (136-145) Potassium Level 3.8 mmol/L (3.5-5.1) Chloride Level 104 mmol/L (98-107) Carbon Dioxide Level 28 mmol/L (21-32) Anion Gap 7 (6-14) Blood Urea Nitrogen 16 mg/dL (7-20) Creatinine 1.1 mg/dL (0.6-1.0) H Estimated GFR (Cockcroft-Gault) 59.2 BUN/Creatinine Ratio 15 (6-20) Glucose Level 99 mg/dL (70-99) Calcium Level 9.7 mg/dL (8.5-10.1) Magnesium Level 2.1 mg/dL (1.8-2.4) Total Bilirubin 0.3 mg/dL (0.2-1.0) Aspartate Amino Transferase (AST) 26 U/L (15-37) Alanine Aminotransferase (ALT) 43 U/L (14-59) Alkaline Phosphatase 132 U/L (46-116) H Creatine Kinase 121 U/L (26-192) Troponin I Quantitative < 0.017 ng/mL (0.000-0.055) BG-Jzn-E-Type Natriuretic Peptide 77 pg/mL (0-124) Total Protein 8.0 g/dL (6.4-8.2) Albumin 4.0 g/dL (3.4-5.0) Albumin/Globulin Ratio 1.0 (1.0-1.7) Lipase 119 U/L (73-393) Laboratory Tests 03/25/19 11:30 Laboratory Tests 03/25/19 11:30 EKG EKG EKG interpreted by me. EKG at 1035 showed normal sinus rhythm at rate of 65, PACs, nonspecific ST depression, no acute ST and T-wave abnormalities. Radiology/Procedures Radiology/Procedures [][facility] [address] [place] [address] IMAGING REPORT Signed PATIENT: JEAN-PAUL WEAVER ACCOUNT: [id number] : 1950 LOCATION: ER AGE: 69 SEX: F EXAM STATUS: PRE ER ORD. PHYSICIAN: MAYDA PÉREZ MD REASON: palpitation PROCEDURE: PORTABLE CHEST 1V PORTABLE CHEST 1V INDICATION: Palpitations. COMPARISON STUDY: 11/30/2010. FINDINGS: Lungs: Normal lung volume. No pulmonary mass or consolidation. The tracheobronchial tree and hilar structures are normal. Pleura: No pleural effusion or pneumothorax. Heart and Mediastinum: Cardiomegaly. Atherosclerotic thoracic aorta. IMPRESSION: No acute cardiopulmonary process. Electronically signed by: Rosanne Womack MD (03/25/2019 11:04 AM) [facility] DICTATED and SIGNED BY: ROSANNE WOMACK MD DATE: 03/25/191103 Course & Med Decision Making Course & Med Decision Making Pertinent Labs and Imaging studies reviewed. (See chart for details) Evaluation of patient in ER showed 69-year-old female patient with history of chronic palpitation presented with complaining of weakness and shortness of breath for palpitation yesterday that resolved spontaneously. Patient had unremarkable physical exam and labs and was advised to follow with her card iologist and continue current medication including metoprolol. Dragon Disclaimer Dragon Disclaimer This electronic medical record was generated, in whole or in part, using a voice recognition dictation system. Departure Departure Impression: Primary Impression: Palpitation Additional Impression: Shortness of breath Disposition: 01 HOME, SELF-CARE (at 1226) Condition: STABLE Referrals: CT JIMENEZ MD (PCP) ASIF BIRMINGHAM MD Patient Instructions: Palpitations, Shortness of Breath Additional Instructions: Follow-up with your primary care physician in 3-5 days Return to ER if not getting better Continue current medication Problem Qualifiers MAYDA PÉREZ MD Mar 25, 2019 12:28
--- NOTE | 2019-03-25 13:11 | EKG ---
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
== END 2019-03-25 12:40 | disposition home or self-care (01) ==
LOC: ER 10:29
DX: R00.2 Palpitations (principal); R06.02 Shortness of breath; K21.9 Gastro-esophageal reflux disease without esophagitis; E78.00 Pure hypercholesterolemia, unspecified; I10 Essential (primary) hypertension; Z90.710 Acquired absence of both cervix and uterus; Z88.5 Allergy status to narcotic agent; Z88.8 Allergy status to other drugs, medicaments and biological substances
CPT/HCPCS: 36415; 71045; 80053; 82550; 83690; 83735; 83880; 84484; 85025; 85610; 93005; 99285

== ENCOUNTER → 2019-11-18 | Outpatient (CLI) | payer MEDICARE ==
[~2019-11-18] MED LIST changes: -DICL100G18 TP; +DICL100G54 TP
--- NOTE | 2019-11-18 13:52 | CARD ---
MR#: [id number] Date of Study: 11/18/2019 Ordering Physician: ASIF BIRMINGHAM, Referring Physician: ASIF BIRMINGHAM Tech: Vidya Trejo RDCS APPROVED REPORT EXAM: Two-dimensional and M-mode echocardiogram with Doppler and color Doppler. Other Information Quality : Excellent INDICATION Premature Ventricular Contractions 2D DIMENSIONS RVDd2.5 (2.9-3.5cm)Left Atrium(2D)2.7 (1.6-4.0cm) IVSd0.9 (0.7-1.1cm)Aortic Root(2D)2.3 (2.0-3.7cm) LVDd3.8 (3.9-5.9cm)LVOT Diameter1.8 (1.8-2.4cm) PWd0.7 (0.7-1.1cm)LVDs2.3 (2.5-4.0cm) FS (%) 39.1 %SV43.1 ml LVEF(%)60.0 (>50%) Aortic Valve AoV Peak Bruce.127.1cm/sAoV VTI24.8cm AO Peak GR.6.5mmHgLVOT Peak Bruce.129.0cm/s AO Mean GR.3mmHgAVA (VMAX)2.54cm2 SYDNEY (VTI)2.50cm2 Mitral Valve MV E Jopzfurs00.7cm/sMV DECEL [id number] MV A Oxmzvecz36.1cm/sE/A Ratio0.8 Tricuspid Valve TR P. Zpqbevlc736en/sRAP HXFGYQHL7djMx TR Peak Gr.06hfKuDONY89kiUl Pulmonary Vein S1 Fpxchsrl46.2cm/sD2 Iatufben21.9cm/s LEFT VENTRICLE The left ventricle is normal size. There is normal left ventricular wall thickness. The left ventricu lar systolic function is normal and the ejection fraction is within normal range. The Ejection Fracti on is 55-60%. There is normal LV segmental wall motion. Transmitral Doppler flow pattern is Grade I-a bnormal relaxation pattern. RIGHT VENTRICLE The right ventricle is normal size. The right ventricular systolic function is normal. ATRIA The left atrium size is normal. The right atrium size is normal. The interatrial septum is intact wit h no evidence for an atrial septal defect or patent foramen ovale as noted on 2-D or Doppler imaging. AORTIC VALVE The aortic valve is mildly calcified. Doppler and Color Flow revealed no significant aortic regurgita tion. There is no significant aortic valvular stenosis. MITRAL VALVE The mitral valve is normal in structure and function. There is no evidence of mitral valve prolapse. There is no mitral valve stenosis. Doppler and Color-flow revealed trace to mild mitral regurgitation . TRICUSPID VALVE The tricuspid valve is normal in structure and function. Doppler and Color Flow revealed mild tricusp id regurgitation. The PA pressure was estimated at 27 mmHg. There is no tricuspid valve stenosis. PULMONIC VALVE The pulmonary valve is normal in structure and function. Doppler and Color Flow revealed trace pulmon ic valvular regurgitation. There is no pulmonic valvular stenosis. GREAT VESSELS The aortic root is normal in size. The ascending aorta is not well seen. The IVC is normal in size an d collapses >50% with inspiration. PERICARDIAL EFFUSION There is no evidence of significant pericardial effusion. Critical Notification Critical Value: No <Conclusion> The left ventricular systolic function is normal and the ejection fraction is within normal range. Th e Ejection Fraction is 55-60%. There is normal LV segmental wall motion. Signed by : Carlos Boateng, Electronically Approved : 11/18/2019 13:52:17
== END ==
LOC: ECHO 13:04
PROVIDERS: ATTEND Internal Medicine Cardiovascular Disease
DX: I08.3 Combined rheumatic disorders of mitral, aortic and tricuspid valves (principal); I49.3 Ventricular premature depolarization
CPT/HCPCS: 93306

== ENCOUNTER → 2019-11-22 | Outpatient (CLI) | payer MEDICARE ==
--- NOTE | 2019-11-22 14:42 | KCIC ---
Bilateral digital screening mammograms with 3-D tomosynthesis: Reason for examination: Routine screening. Comparison is made to previous studies dated back to 11/19/2016. Bilateral mammograms in CC and oblique projections were obtained with 2-D imaging and 3-D tomosynthesis imaging on a Siemens Inspiration unit and reviewed on the workstation. Interpretation was made with the benefit of CAD. The skin and nipples show no abnormalities. No abnormal axillary lymph nodes are seen. The breast parenchyma shows scattered fatty and fibroglandular density. (Breast density: Category B.) There are no dominant masses, suspicious calcifications or architectural distortion. There continues to be a small 6 mm circumscribed nodule at the 9:00 B position of the right breast which is stable. There is a small 8 mm nodule at approximately the 5:30 B position of the right breast. There also continues be a small 4 mm circumscribed lesion anterior medially in the left breast which is stable. Benign-appearing calcifications are again seen in the left breast and are stable. Impression: No evidence of malignancy. Recommend routine screening. BI-RAD Category 2: Benign. "Our facility is accredited by the [employer] Mammography Program." This patient's information has been entered into a reminder system for the patient to be notified with the results of her examination and a target date for the next mammogram. Electronically signed by: Mikaela Junior MD (11/22/2019 2:39 PM) [id number]
== END | disposition home or self-care (01) ==
LOC: KCIC MAMMO 10:52
PROVIDERS: ATTEND Specialist
DX: Z12.31 Encounter for screening mammogram for malignant neoplasm of breast (principal); N64.89 Other specified disorders of breast
CPT/HCPCS: 77063; 77067

== ENCOUNTER → 2020-08-13 | Outpatient (CLI) | payer MEDICARE ==
[~2020-08-13] MED LIST changes: +AMLO-186 PO; -AMLO5TAB10 PO; +CONTRAST GIVEN. MC PRN; +IOHEXOL 240 MG/ML 50ML VIAL. PO ONE; +IOHEXOL 300 MG/ML 100ML VIAL. IV ONE
--- NOTE | 2020-08-13 12:34 | KCIC ---
EXAM: Abdomen and pelvis CT with intravenous contrast. HISTORY: Right lower quadrant pain. Weight loss. TECHNIQUE: Computed tomographic images of the abdomen and pelvis were obtained following the administ ration of intravenous contrast. Multiplanar reformatting was performed. *One or more of the following individualized dose reduction techniques were utilized for this examina tion: 1. Automated exposure control. 2. Adjustment of the mA and/or kV according to patient size. 3. Use of iterative reconstruction technique. COMPARISON: 09/10/2016. FINDINGS: Evaluation of the lower thorax is unremarkable. There are multiple hepatic cysts, the large st of which is seen within the posterior right hepatic lobe measuring 2.8 cm. The gallbladder, pancre as, spleen, stomach and adrenal glands are unremarkable. There is a tiny right lateral renal cortical cyst. There is no hydronephrosis. There is a large amount of stool throughout the colon. There is no appendicitis. There is no bowel obstruction. The uterus is absent. The bladder is unremarkable. No p athologically enlarged lymph node is seen. There is no suspicious osseous lesion. There is grade 1 an terolisthesis of L4 and L5. There is degenerative change primarily at L5-S1. IMPRESSION: 1. Large amount stool throughout the colon. Correlate for constipation. 2. Multiple hepatic cysts and tiny right renal cyst. Follow-up is not routinely performed for simple cysts. Electronically signed by: Ngoc Morton MD (08/13/2020 12:32 PM) [id number]
== END ==
LOC: KCIC CT 09:27
PROVIDERS: ATTEND Internal Medicine Gastroenterology
DX: N28.1 Cyst of kidney, acquired (principal); K76.89 Other specified diseases of liver; M47.817 Spondylosis without myelopathy or radiculopathy, lumbosacral region; R63.4 Abnormal weight loss; Z90.710 Acquired absence of both cervix and uterus
CPT/HCPCS: 74177; 82565; Q9966; Q9967

== ENCOUNTER → 2020-09-03 | Outpatient (CLI) | payer MEDICARE ==
[~2020-09-03] MED LIST changes: -CONTRAST GIVEN. MC PRN; -IOHEXOL 240 MG/ML 50ML VIAL. PO ONE; -IOHEXOL 300 MG/ML 100ML VIAL. IV ONE
--- NOTE | 2020-09-03 12:43 | KCIC ---
EXAM: Small bowel follow-through DATE: 09/03/2020 8:30 AM INDICATION: Reason: Wt loss, constipation / Spl. Instructions: 12 sec fl 3 images. / History: Wt. los s of 25 pounds in 4 yrs. COMPARISON: No Prior Technique: Portable contrast was administered to the patient and sequential images of the abdomen wer e obtained. Fluoroscopic spot compression images of the right lower quadrant was obtained. FINDINGS: General Operations Manager AP view of the abdomen demonstrates large volume colonic stool content. The serial films of barium traversing the small bowel to the cecum reveal a normal transit time. Cont rast material is present in the colon after 30 minutes. There is no evidence of obstruction or filling defect. The terminal ileum appears normal. IMPRESSION: Grossly normal small bowel follow-through examination with contrast material in the colon by the 30 m inute image. Electronically signed by: Chong Hoover MD (09/03/2020 12:40 PM) [id number]
== END ==
LOC: KCIC 08:22
PROVIDERS: ATTEND Internal Medicine Gastroenterology
DX: K59.00 Constipation, unspecified (principal); R63.4 Abnormal weight loss
CPT/HCPCS: 74250

== ENCOUNTER → 2020-11-26 | Outpatient (CLI) | payer MEDICARE ==
[~2020-11-26] MED LIST changes: -OMEP40CA45 PO; +OMEP40CA7 PO
--- NOTE | 2020-11-26 12:02 | KCIC ---
Bilateral digital screening mammograms with 3-D tomosynthesis: Reason for examination: Routine screening. Comparison is made to previous studies dated back to 11/09/2014. Bilateral mammograms in CC and oblique projections were obtained with 2-D imaging and 3-D tomosynthes is imaging on a Siemens Inspiration unit and reviewed on the workstation. Interpretation was made wit h the benefit of CAD. The skin and nipples show no abnormalities. No abnormal axillary lymph nodes are seen. The breast par enchyma shows scattered fatty and fibroglandular density. (Breast density: Category B.) There continu e to be nodular parenchymal densities in the right breast at the 9:00 B position and 5:30 B positions and in the left breast at the 8:00 B position which are stable. There continue to be some calcificat ions in the upper outer quadrant of the left breast which are stable. There are no new dominant river s, suspicious calcifications or architectural distortion. Impression: No evidence of malignancy. Recommend routine screening. BI-RAD Category 2: Benign. "Our facility is accredited by the [employer] Mammography Program." This patient's information has been entered into a reminder system for the patient to be notified wit h the results of her examination and a target date for the next mammogram. Electronically signed by: Mikaela Junior MD (11/26/2020 12:00 PM) [id number]
== END ==
LOC: KCIC MAMMO 10:08
PROVIDERS: ATTEND Specialist
DX: Z12.31 Encounter for screening mammogram for malignant neoplasm of breast (principal); N64.89 Other specified disorders of breast
CPT/HCPCS: 77063; 77067

== ENCOUNTER → 2021-02-08 | Day surgery (SDC) | payer MEDICARE ==
[~2021-02-08] VITALS: Ht 160 cm; Wt 49.5 kg
[~2021-02-08] MED LIST changes: +ASPI325T8 PO; +IV RINGERS,LACTATED 1000ML 1,000 ML IV ONE; +LIDOCAINE 2% PF 5 ML VIAL. ONE; +LOSA1TAB25 PO; +METF500T16 PO; +METO-239 PO; +POTA-121 PO; -POTA20TA4 PO; +PROPOFOL 10 MG/ML (20ML) VIAL. IV ONE; +TROS20TA2 PO
[2021-02-08 08:39] VITALS: BP 144/70
[2021-02-08 10:22] VITALS: BP 144/78
--- NOTE | 2021-02-09 00:02 | HP ---
ADMIT DATE: 02/08/2021 UPDATED HISTORY AND PHYSICAL REASON FOR ADMISSION: Weight loss. HISTORY OF PRESENT ILLNESS: A 70-year-old -[place] female with past medical history significant for hyperlipidemia, osteoarthritis, hypertension, diabetes, gastroesophageal reflux disease, is seen for worsening constipation and weight loss. She has lost approximately 30 pounds in the past several years and there has been no change. Denies any bleeding, but she has had intermittent constipation. Prior colonoscopy in 2019 was unrevealing for pathology with ongoing issues and continued weight loss and CT scan helpful. Interval colonoscopy is recommended. PAST MEDICAL HISTORY: Hypertension, hyperlipidemia, diabetes, osteoarthrosis. ALLERGIES: SHELLY INHIBITORS, DOXYCYCLINE, MORPHINE. MEDICATIONS: Include aspirin, atorvastatin, calcium, diclofenac, dicyclomine, losartan, metformin, metoprolol, omeprazole, and . PAST SURGICAL HISTORY: Status post hysterectomy. REVIEW OF SYSTEMS: Per records. PHYSICAL EXAMINATION: GENERAL: Reveals a well-nourished, well-developed -[place] female, who is alert, cooperative, in no acute distress. VITAL SIGNS: Temperature 97.4, pulse 62, respiratory rate 18. LUNGS: Clear. CARDIOVASCULAR: Reveals S1, S2, without S3, S4 or appreciable murmur. ABDOMEN: Reveals a soft abdomen, normal bowel sounds, no appreciable hepatosplenomegaly. EXTREMITIES: Reveals no cyanosis, clubbing or edema. IMPRESSION: Constipation and weight loss, etiologies to determine. Colon cancer, inflammatory bowel disease, malabsorption, IBS certainly on the differential. Therefore, recommend interval colonoscopy. Risks and benefits were discussed. The patient is willing to proceed at this time. IVONE/ALEC DR: Joe TID: [id number]
== END | disposition home or self-care (01) ==
LOC: ENDOS 08:01
PROVIDERS: ATTEND Internal Medicine Gastroenterology
DX: R19.5 Other fecal abnormalities (principal); R63.4 Abnormal weight loss; K59.00 Constipation, unspecified; K64.0 First degree hemorrhoids; K57.30 Diverticulosis of large intestine without perforation or abscess without bleeding; M19.90 Unspecified osteoarthritis, unspecified site; I10 Essential (primary) hypertension; E11.9 Type 2 diabetes mellitus without complications; K21.9 Gastro-esophageal reflux disease without esophagitis; E78.5 Hyperlipidemia, unspecified; F41.9 Anxiety disorder, unspecified; Z90.710 Acquired absence of both cervix and uterus; Z98.890 Other specified postprocedural states; Z79.899 Other long term (current) drug therapy; Z79.82 Long term (current) use of aspirin; Z88.1 Allergy status to other antibiotic agents; Z88.8 Allergy status to other drugs, medicaments and biological substances; Z20.822 Contact with and (suspected) exposure to COVID-19
CPT/HCPCS: 45378; 87426; J2704

== ENCOUNTER → 2021-06-05 | Outpatient (CLI) | payer MEDICARE ==
[2021-02-08 10:22] VITALS: BP 144/78
[~2021-06-05] MED LIST changes: -IV RINGERS,LACTATED 1000ML 1,000 ML IV ONE; -LIDOCAINE 2% PF 5 ML VIAL. ONE; -PROPOFOL 10 MG/ML (20ML) VIAL. IV ONE
--- NOTE | 2021-06-06 14:25 | CARD ---
MR#: [id number] Date of Study: 06/05/2021 Ordering Physician: ASIF BIRMINGHAM, Referring Physician: ASIF BIRMINGHAM, Tech: Vandana Mauro [facility] APPROVED REPORT EXAM: Two-dimensional and M-mode echocardiogram with Doppler and color Doppler. Other Information Quality : AverageHR: 67bpm INDICATION Chest Pain RISK FACTORS Hypertension Hyperlipidemia 2D DIMENSIONS Left Atrium(2D)2.9 (1.6-4.0cm)IVSd1.1 (0.7-1.1cm) Aortic Root(2D)2.7 (2.0-3.7cm)LVDd3.5 (3.9-5.9cm) LVOT Diameter2.0 (1.8-2.4cm)PWd1.0 (0.7-1.1cm) LVDs2.2 (2.5-4.0cm)FS (%) 36.9 % SV35.6 mlLVEF(%)67.7 (>50%) Aortic Valve AoV Peak Bruce.119.3cm/sAoV VTI24.2cm AO Peak GR.5.7mmHgAO Mean GR.3mmHg Mitral Valve MV E Hdarrxtk70.6cm/sMV DECEL [id number] MV A Fwaxcurh91.8cm/sMV E Mean Gr.1mmHg MV KAR01beY/A Ratio1.1 MVA (PHT)2.40cm2 TDI E/Lateral E'5.3E/Medial E'5.3 Pulmonary Valve PV Peak Jdjwakuw99.3cm/sPV Peak Grad.2mmHg Tricuspid Valve TR P. Luihlmbd639ld/sRAP [id number] TR Peak Gr.51aeKkWMUG73imXl Pulmonary Vein S1 Ufpcnrhj08.2cm/sD2 Tpkgmrmv03.8cm/s PVa fvfrelqf575nyob LEFT VENTRICLE The left ventricle is normal size. There is mild concentric left ventricular hypertrophy. The left ve ntricular systolic function is normal and the ejection fraction is within normal range. The Ejection Fraction is 50-55%. There is normal LV segmental wall motion. The left ventricular diastolic function and filling is normal for age. RIGHT VENTRICLE The right ventricle is normal size. There is normal right ventricular wall thickness. The right ventr icular systolic function is normal. ATRIA The left atrium size is normal. The right atrium size is normal. The interatrial septum is intact wit h no evidence for an atrial septal defect or patent foramen ovale as noted on 2-D or Doppler imaging. AORTIC VALVE The aortic valve is normal in structure and function. Doppler and Color Flow revealed no significant aortic regurgitation. There is no significant aortic valvular stenosis. There is a maximum pressure g radient of 6 mmHg and mean pressure gradient of 3 mmHg. MITRAL VALVE The mitral valve is normal in structure and function. There is no evidence of mitral valve prolapse. There is no mitral valve stenosis. Doppler and Color-flow revealed trace mitral regurgitation. TRICUSPID VALVE The tricuspid valve is normal in structure and function. Doppler and Color Flow revealed trace tricus pid regurgitation with an estimated PAP of 30 mmHg. There is no tricuspid valve stenosis. PULMONIC VALVE Doppler and Color Flow revealed no pulmonic valvular regurgitation. There is no pulmonic valvular ryan nosis. GREAT VESSELS The aortic root is normal in size. The IVC is normal in size and collapses >50% with inspiration. PERICARDIAL EFFUSION There is no evidence of significant pericardial effusion. Critical Notification Critical Value: No <Conclusion> The left ventricular systolic function is normal and the ejection fraction is within normal range. Th e Ejection Fraction is 50-55%. There is normal LV segmental wall motion. Signed by : Carlos Boateng, Electronically Approved : 06/06/2021 14:25:18
== END ==
LOC: ECHO 14:45
PROVIDERS: ATTEND Internal Medicine Cardiovascular Disease
DX: I51.7 Cardiomegaly (principal); R07.9 Chest pain, unspecified
CPT/HCPCS: 93306